=== PATIENT | female | born 1945 | race Caucasian/White ===

== ENCOUNTER 2016-08-01 15:25 | Emergency (ER) | payer MEDICARE, OTHER ==
[~2016-08-01] VITALS: Ht 154.9 cm; Wt 64.8 kg
[~2016-08-01 15:25] MED LIST: ACCUVITE; AMLO5 PO; ASPI81 PO; CENTTAB9 PO; CETI10 PO; ESTR1.25 PO; FERR140T PO; GUAI600 PO; IPRAAER IN; LACT PO; LEVA500T PO; LISI10 PO; LOPE2 PO; LORTA5 PO; METO25 PO; MIRA50TA PO; MOME17I; PANT20 PO; PRED20 PO; SYMB160A INH; VITA100020 SL; WARF4 PO; [UNRECOGNIZED DRUG - CODE] PO; [UNRECOGNIZED DRUG - CODE] PO; [UNRECOGNIZED DRUG - REMARK] XX
[2016-08-01 15:29] VITALS: BP 135/76; PULSE 71; RESP 16; TEMP 98.5; O2SAT 96
[2016-08-01] MEDS ORDERED: GLUC1TAB24 PO (16:04)
[2016-08-01] MEDS ORDERED: ZOCO20TA PO (16:04)
[2016-08-01] MEDS ORDERED: LECI1200 PO (16:04)
[2016-08-01] MEDS ORDERED: ZYRT10CA PO (16:04)
[2016-08-01] MEDS ORDERED: HYDR-3516 PO (16:04)
[2016-08-01] MEDS ORDERED: METO25TA3 PO (16:04)
[2016-08-01] MEDS ORDERED: FLUT1SPR22 INFIL (16:04)
[2016-08-01] MEDS ORDERED: TRIMSOL3 EACH EYE (16:04)
[2016-08-01] MEDS ORDERED: PROTPAK PO (16:04)
[2016-08-01] MEDS ORDERED: ESTR.3 PO (16:04)
[2016-08-01] MEDS ORDERED: MUCI600T PO (16:04)
[2016-08-01] MEDS ORDERED: OCUVTAB PO (16:04)
[2016-08-01] MEDS ORDERED: VITA100064 PO (16:04)
[2016-08-01] MEDS ORDERED: LISI-515 PO (16:04)
[2016-08-01] MEDS ORDERED: MULT-6 PO (16:04)
[2016-08-01] MEDS ORDERED: PROPARACAINE HCL 0.5% OPHT SOLN 15 ML BTL LEFT EYE ONE (16:15)
[2016-08-01] MEDS ORDERED: TOBR0.3S LEFT EYE (16:18)
--- NOTE | 2016-08-01 16:26 | PD ---
HPI Chief Complaint: Eye Problems/Injury Time Seen by Provider: 16:19 Travel History International Travel<30 days: No Contact w/Intl Traveler<30days: No Traveled to known affect area: No History of Present Illness HPI 71-year-old female that presents to the ED for evaluation of left eye irritation. Per patient yesterday she went to an urgent care for evaluation of itchiness to her left eye. Per patient she was thinking that she was probably having an allergic reaction and she does have allergies which is chronic. Per patient prior was itchy but not painful. She had tearing and watering. Per patient she went to the urgent care and then diagnosed with conjunctivitis. Per patient the laryngeal any testing on her eyes but give her a prescription for Polytrim. Patient tells me that she's been using the drops but the drops seem to be making the pain and the symptoms worse. Per patient and her eye hurts which was not present before. She states that she wants to the H her eye. She denies any chest pain or shortness of breath. No fevers chills or sweats. No runny nose or congestion. Per patient pain is 3 out of 10 and gets worse when she opens her eye. Allergy to sulfa. Denies any blurry vision or double vision. No foreign body sensation. PFSH Past Medical History Hx Anticoagulant Therapy: No Anemia: Yes Arthritis: Yes Autoimmune Disease: No Anxiety: No Depression: No Cancer: No Cardiovascular Problems: Yes (HTN, CHOL, ) Chest Pain: Yes (PALPITATIONS ) Diabetes: Yes (DIET CONTROLLED) Patient Takes Glucophage: No Diminished Hearing: No Glaucoma: No Hepatitis: No Hiatal Hernia: Yes Hypertension: Yes Immune Disorder: No Musculoskeletal: Yes Neurologic: No Psychiatric: No Reproductive: No Respiratory: Yes (pe) Immunizations Current: Yes Thyroid Disease: No Tetanus Vaccination: < 5 Years Influenza Vaccination: Yes ?: Not Menopausal: Yes Past Surgical History Ear Surgery: No Eye Surgery: Yes (BILAT CATARACTS ) Gynecologic Surgery: Yes (HYSTERECTOMY ) Hysterectomy: Yes Joint Replacement: Yes (BILAT KNEE ) Oral Surgery: No Other Surgery: Yes Social History Alcohol Use: Yes (OCCAS. WINE) Tobacco Use: No Substance Use: No Allergies-Medications (Allergen,Severity, Reaction): Coded Allergies: Sulfa (Verified Allergy, Mild, 08/01/16) Reported Meds & Prescriptions Reported Meds & Active Scripts Active Tobrex Opth Drops (Tobramycin Opth Drops) 0.3 % Soln 1 Drop LEFT EYE Q6H Reported Polymyxin B-Trimethoprim Opth (Trimethoprim-Polymyxin B Opth) 10,000-0.1 Unit/Ml -% Soln 1 Drop EACH EYE Q6HR Centrum (Multiple Vitamins W/ Minerals) 1 Tab 1 Tab PO DAILY Ocuvite (Multiple Vitamins W/ Minerals) 1 Tab 1 Tab PO DAILY Lecithin 1,200 Mg Cap 1 Tab PO DAILY Zyrtec Allergy (Cetirizine HCl) 10 Mg Cap 10 Mg PO DAILY Zocor (Simvastatin) 20 Mg Tab 20 Mg PO HS Allergy Nasal [place] 24 Ho (Fluticasone Propionate (Nasal)) 50 Mcg/Act Spr 1 [place] INFIL DAILY Hydrocodone-Acetaminophen 5-325 mg Tab 1 Tab PO Q4H PRN Metoprolol Tartrate 25 Mg Tab 25 Mg PO BID Premarin (Estrogens Conjugated) 0.3 Mg Tab 0.3 Mg PO DAILY Vitamin D (Cholecalciferol) 1,000 Unit Tab 1,000 Units PO DAILY Lisinopril 20 Mg Tab 20 Mg PO DAILY Move Free Joint Health Ad (Brcxidmaneh-Ushnnrpgnac-Qytnqj) 1 Tab Tab 1 Tab PO DAILY Mucinex ER 12 HR (Guaifenesin) 600 Mg Sha 600 Mg PO BID Protonix Liq (Pantoprazole Sodium) 40 Mg Pkt 40 Mg PO DAILY Review of Systems General / Constitutional: No: Fever, Chills, Weight Gain, Weight Loss, Other Eyes: Positive: Photophobia, Drainage, Redness, Pain, Tearing, No: Diploplia, Blurred Vision, Foreign Body Sensation, Blind Spots, Visual changes, Blindness, Other HENT: No: Headaches, Vertigo, Lightheadedness, Sore Throat, Rhinitis, Rhinorrhea, Congestion, Nosebleed, Neck Stiffness, Neck Pain, Masses, Gingival Bleeding, Dental Difficulties, Ear Discharge, Earache, Other Cardiovascular: No: Chest Pain or Discomfort, Palpitations, Irregular Rhythm, Tachycardia, Diaphoresis, Syncope, Dyspnea on exertion, Varicosities, Edema, Cyanosis, Varicosities, Phlebitis, Claudication, Other Respiratory: No: Cough, Shortness of Breath, Wheezing, Sneezing, Orthopnea, Hemoptysis, Stridor, Night Sweats, Pleuritic Pain, Other Gastrointestinal: No: Nausea, Vomiting, Diarrhea, Abdominal Pain, Hematemesis, Hematochezia, Constipation, Changes in Bowel Habits, Indigestion, Dysphagia, Loss of Appetite, Other Genitourinary: No: Urgency, Frequency, Dysuria, Nocturia, Hematuria, Decreased Urinary Output, Oliguria, Hesitancy, Dribbling, Incontinence, Pelvic Pain, Flank Pain, Dyspareunia, Discharge, Dysmenorrhea, Menorrhagia, Metorrhagia, Vaginal Bleeding, Other Musculoskeletal: No: Myalgias, Arthralgias, Limited ROM, Weakness, Cramping, Edema, Pain, Atrophy, Other Skin: No Rash, No Itching, No Dryness, No Lumps, No Hives, No Change in Pigmentation, No Change in nails, No Alopecia, No Lesions, No Breast Lumps, No Breast Tenderness, No Breast Swelling, No Other Neurologic: No: Weakness, Dizziness, Syncope, Focal Abnormalities, Coordination Problem, Tremor, Ataxia, Headache, Change in Mentation, Slurred Speech, Paresthesia, Incontinence, Seizures, Sensory Disturbance, Other Psychiatric: No: Anxiety, Depression, Suicidal Ideations, Disorder of Thought, Mood Disorder, Substance Abuse, Homicidal Ideation, Other Endocrine: No: Heat Intolerance, Cold Intolerance, Polyuria, Polydipsia, Other Hematologic/Lymphatic: No: Easy Bruising, Lymph Node Enlargement, Other Physical Exam Narrative GENERAL: SKIN: Warm and dry. HEAD: Atraumatic. Normocephalic. EYES: Pupils equal and round 4 mm reactive to light and accommodation. No scleral icterus. No injection or drainage. EOM intact bilaterally. Peripheral vision intact bilaterally. Fluorescein test revealed no sign of scratch or obvious deformity. Ophthalmic exam reveals no sign of papilledema or vessel disease. Patient does have what appears to be slight erythema to the eyelids. ENT: No nasal bleeding or discharge. Mucous membranes pink and moist. Tongue is midline. No uvula deviation. NECK: Trachea midline. No JVD. CARDIOVASCULAR: Regular rate and rhythm. RESPIRATORY: No accessory muscle use. Clear to auscultation. Breath sounds equal bilaterally. GASTROINTESTINAL: Abdomen soft, non-tender, nondistended. Hepatic and splenic margins not palpable. MUSCULOSKELETAL: Extremities without clubbing, cyanosis, or edema. No obvious deformities. NEUROLOGICAL: Awake and alert. No obvious cranial nerve deficits. Motor grossly within normal limits. Five out of 5 muscle strength in the arms and legs. Normal speech. PSYCHIATRIC: Appropriate mood and affect; insight and judgment normal. Data Data Last Documented VS Vital Signs Date Time Temp Pulse Resp B/P Pulse Ox O2 Delivery O2 Flow Rate FiO2 08/01/16 15:29 98.5 71 16 135/76 96 Orders Proparacaine 0.5% Opth Soln (Alcaine 0.5 (08/01/16 16:15) [facility] Medical Decision Making Medical Screen Exam Complete: Yes Emergency Medical Condition: Yes Medical Record Reviewed: Yes Differential Diagnosis Conjunctivitis versus allergic conjunctivitis versus allergic reaction to medication Narrative Course 71-year-old female that presents to the ED for evaluation of left eye irritation. Patient was properly examined and was found to have signs and symptoms consistent with appears to be allergic conjunctivitis likely worse because of use of sulfa medication on the left side. I do not see any sign of abrasion or deformity to the eye itself. Per patient's symptoms were worse after playing drugs. Patient is allergic to sulfa and she was given a prescription for PolytriSoothEase be which has sulfa in it. This is likely a reaction to the medication. Patient had complete relief of symptoms with proparacaine. From history and physical this appears to be a topical allergic reaction. I recommend Benadryl [id number]. Case was discussed with Dr. Dill the gastroenterology technician automotive fuel injection servicer who recommends Tobrex prescription in addition to the medications. Follow-up with PCP. Follow with eye doctor. See ED worsening symptoms. Diagnosis Primary Impression: Conjunctivitis Qualified Code: B30.9 - Acute viral conjunctivitis of left eye Additional Impression: Medication reaction Qualified Code: T88.7XXA - Medication reaction, initial encounter Referrals: Shelley Dill MD Patient Instructions: General Instructions Additional Instructions: Discontinue drops each ear were using. No longer use this. Take medication given to you today. Keep eye covered. Take Benadryl 25 mg every 6 hours as needed to help with the age and to the swelling. Apply ice to the area. Recheck with gastroenterology technician next week. See ED for any worsening symptoms. Pain and swelling should resolve in the next 24-48 hours. Med/Other Pt SpecificInfo: Prescription(s) given Scripts Tobramycin Opth Drops (Tobrex Opth Drops)0.3 % Soln1 Drop LEFT EYE Q6H #1 BOTTLE Ref 0 Prov:Jia Cunningham DO 08/01/16 Disposition: 01 DISCHARGE HOME Condition: Stable Uday Lozano Aug 01, 2016 16:26
== END 2016-08-01 16:56 | disposition home or self-care (01) ==
LOC: PHEFT 15:25
DX: I10 Essential (primary) hypertension (principal); E11.9 Type 2 diabetes mellitus without complications; H10.12 Acute atopic conjunctivitis, left eye
CPT/HCPCS: 99283

== ENCOUNTER 2017-12-31 09:06 | Inpatient (IN) ==
[2017-12-31] MEDS ORDERED: MethylPREDNISolone Sod Succinate Inj 125 MG/2 ML Vial IV.PUSH ONE (09:39)
--- NOTE | 2017-12-31 09:51 | ED ---
HPI General Chief complaint: Respiratory Symptoms Stated complaint: sob Time Seen by Provider: 12/31/17 09:26 Source: patient Mode of arrival: ambulatory Limitations: no limitations History of Present Illness HPI narrative: 72-year-old female presents to the emergency department with complaint of shortness of breath, cough, wheezing 2 days. I reviewed her medical record and it shows history of COPD, although the patient denies. She does use an albuterol inhaler, and last used it yesterday. She called her waste oil pumper yesterday, Dr. Mcintyre, and he called her and a prescription for a Z-Luke which she took 2 pills yesterday and has not felt better. She also states that she was here 2 years ago and spots were found on her lungs which she follows with Dr. Reynoso, oncologist, and they have minimally changed, per the patient. 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 She reports having multiple blood clots in her lungs also 2 years ago. Denies any fever or vomiting. Denies hemoptysis. Reports green/linton sputum production. Denies chest pain. Reports chest discomfort only with coughing. Denies leg edema. Reports hormone replacement therapy and takes Premarin. Denies any recent travel, surgeries, hospitalizations. Denies tobacco use. Treatments tried have been a azithromycin and albuterol inhaler. No known aggravating or relieving factors. Symptoms are moderate to severe in severity. Her main care provider is Dr. Gordon. Allergies as listed on the chart. History of hypertension, PE, DVT, per the patient. Has no other medical complaints. No other modifying factors or associated signs and symptoms. Related Data Home Medications Medication Instructions Recorded Confirmed cetirizine [Zyrtec] 10 mg PO DAILY 12/31/17 12/31/17 cholecalciferol (vitamin D3) 1,000 unit PO DAILY 12/31/17 12/31/17 [Vitamin D3] conjugated estrogens [Premarin] 0.3 mg PO DAILY 12/31/17 12/31/17 fluticasone 2 spray INTRANASAL DAILY 12/31/17 12/31/17 hydrocodone-acetaminophen 1 tab PO Q6H PRN 12/31/17 12/31/17 lisinopril 20 mg PO DAILY 12/31/17 12/31/17 metoprolol tartrate 50 mg PO BID 12/31/17 12/31/17 [id number]-gps-OC-lycopen-lutein 1 tab PO DAILY 12/31/17 12/31/17 [Centrum Silver] pantoprazole [Protonix] 40 mg PO DAILY 12/31/17 12/31/17 simvastatin 20 mg PO QPM 12/31/17 12/31/17 vit C-vit S-gtfkzw-fhq-om-3 1 cap PO DAILY 12/31/17 12/31/17 [Ocuvite] Allergies Allergy/AdvReac Type Severity Reaction Status Date / Time Sulfa (Sulfonamide Allergy Mild Rash Verified 12/31/17 09:43 Antibiotics) atenolol Allergy Rash Verified 12/31/17 09:43 cefuroxime Allergy Rash Verified 12/31/17 09:43 clarithromycin [From Biaxin] Allergy Rash Verified 12/31/17 09:43 enalaprilat [From Vasotec] Allergy Rash Verified 12/31/17 09:43 levofloxacin [From Levaquin] Allergy Rash Verified 12/31/17 09:43 prednisone Allergy Nausea/Vomi Verified 12/31/17 17:10 ting Review of Systems ROS Unobtainable All other systems reviewed negative except as stated in HPI PMFSH Medical History Medical History History of pneumonia (Acute) Hx pulmonary embolism (Acute) Hx of hysterectomy (Acute) High cholesterol (Acute) Hypertension (Chronic) H/O: hysterectomy (Acute) Surgical History Surgical History Hx of cervical spine surgery (Acute) Social History Social History Substance History: No History of Abuse Second Hand Smoke Exposure: No Smoking Status: Never smoker How Often Do You Have a Drink Containing Alcohol: Monthly or less Recent Travel in [facility] within the Last 8 Weeks: No Recent Out of Country Travel within the Last 8 Weeks: No Immunization History Tetanus Immunization: Unsure Hx Influenza Vaccine This Season: No Exam Narrative Exam Narrative: GENERAL: Well-nourished, well-developed female patient , in no acute distress; afebrile, nontoxic-appearing SKIN: Warm and dry. HEAD: Atraumatic. Normocephalic. EYES: Pupils equal and round. No scleral icterus. No injection or drainage. ENT: Mucosa pink and moist. No erythema or exudates. No uvular edema. No uvular , palatal, or tonsillar deviation. Airway patent. Nares without nasal blood, purulent drainage or septal hematoma. EARS: Bilateral pinnae and external canals appear within normal limits. Bilateral tympanic membranes without erythema, dullness or perforation. NECK: Trachea midline. No lymphadenopathy. CARDIOVASCULAR: Tavhycardic rate and rhythm in low 100's. No murmur appreciated. RESPIRATORY: No accessory muscle use. Lungs with decreased lung sounds throughout and coarse lung sounds in bilateral bases to auscultation. Breath sounds equal bilaterally. No retractions or tachypnea. No Audible wheezing noted. Shortness of breath noticed with talking. GASTROINTESTINAL: Rounded. MUSCULOSKELETAL: No obvious deformities. No clubbing. No cyanosis. No edema. NEUROLOGICAL: Awake and alert. Oriented 3. No obvious cranial nerve deficits. Motor grossly within normal limits. Normal speech. Moves all extremities. 5/5 strength to all extremities. PSYCHIATRIC: Appropriate mood and affect; insight and judgment normal. Course Initial Documented Vital Signs Temperature 99 F 12/31/17 09:08 Pulse Rate 104 H 12/31/17 09:08 Respiratory Rate 18 12/31/17 09:08 Blood Pressure 179/69 H 12/31/17 09:08 Pulse Oximetry 96 12/31/17 09:08 Last Documented Vital Signs Temperature 98.3 F 01/01/18 07:11 Pulse Rate 124 H 01/01/18 07:11 Respiratory Rate 18 01/01/18 07:11 Blood Pressure 153/72 H 01/01/18 07:11 Pulse Oximetry 92 L 01/01/18 07:11 Medical Decision Making SHANI Attestation SHANI supervised visit: Yes Attestation: I was present with the nurse practitioner during the management of this patient. I discussed the case with the nurse practitioner and agree with the findings and plan as documented in their note except as noted below. 72yF presenting with shortness of breath x 2 days. As per records, patient has a history of COPD and DVT/ PE; patient was started on azithromycin by her PMD with no improvement in symptoms. Admits to cough productive of green/ [place] sputum. Denies fevers/ chills, chest pain, palpitations. Family history non- contributory. Well-appearing, no acute distress RRR Coarse breath sounds at bases bilaterally, O2 sats high 80s on room air, mid 90s on 2L NC Abdomen soft and non-tender No lower extremity edema GCS 15, A&O x 3 No rashes or lesions Appropriate affect A/P: 72yF presenting with dyspnea and hypoxia EKG and monitor Labs CXR CT angio Addendum: This patient cannot go home as she has continued room-air hypoxia and pneumonia. She will need monitoring, IV antibiotics, supplemental O2, and re- evaluation at frequent intervals. AISLINN Rush discussed these results and plan with the patient, who understands and agrees. MDM Narrative Medical decision making narrative: 72-year-old female, with history of COPD after reviewing medical records, presents with shortness breath, cough, wheezing. Oxygen saturation is 88% on air. Patient placed on 2 L nasal cannula. Patient placed on cardiopulmonary monitor. Patient reports history of DVT/PE and is not on any blood thinners. Discussed patient with Dr. Swartz, and plan of care discussed. CBC, CMP, IV, chest x-ray, DuoNeb 3, Solu-Medrol, CT pulmonary angiogram ordered. 1007: I reviewed the patient's medical record and she had a CT pulmonary angiogram on July 01, 2014 which concluded small pulmonary emboli in the right upper lobe and left lower lobe of the pulmonary arterial branches; and 7 mm left lower lobe pulmonary nodule. 1040: Chest x-ray concluded: Minimal vague infiltrate left upper lobe not present previously. 1111: CBC, CMP unremarkable. 1205: CT pulmonary angiogram concluded: There is no evidence of PE for technique. 2. Left lower lobe nodule present on the studies going back to 2014 not significantly changed.3. Parenchymal infiltrates partially consolidated left upper lobe and left lower lobe suspicious for pneumonia.4. There are lymph nodes within the mediastinum appear pathological not present on the prior examinations and larger as well. Possibility of metastatic disease is difficult to exclude and clinical correlation is suggested. CT findings discussed with the patient and patient provided a copy of the CT report. I did trial the patient on room air after DuoNeb's and oxygen saturation dropped to 86 %. Rocephin and a azithromycin ordered. patient will be admitted for further treatment and evaluation. Call placed to YRIS. 1230: Patient states that she cannot take Rocephin as it causes her shortness of breath and a rash. Rocephin discontinued. 1250: I spoke with YRIS Domingo; report given for patient admission. Lab Data Lab results reviewed: Yes I reviewed the patient's lab results. Result diagrams: 01/01/18 08:00 12/31/17 09:56 Lab Results 12/31/17 12/31/17 12/31/17 Range/Units 09:56 09:56 09:56 WBC 7.8 (4.0-11.0) th/mm3 RBC 4.76 (4.00-5.30) mil/mm3 Hgb 14.0 (11.6-15.3) gm/dL Hct 41.6 (35.0-46.0) % MCV 87.3 (80.0-100.0) fL MCH 29.3 (27.0-34.0) pg MCHC 33.6 (32.0-36.0) % RDW 14.0 (11.6-17.2) % Plt Count 282 (150-450) th/mm3 MPV 8.0 (7.0-11.0) fL Neut % (Auto) 68.8 (16.0-70.0) % Lymph % (Auto) 13.6 (9.0-44.0) % [place] % (Auto) 15.1 H (0.0-8.0) % Eos % (Auto) 1.7 (0.0-4.0) % Baso % (Auto) 0.8 (0.0-2.0) % Neut # (Auto) 5.4 (1.8-7.7) th/mm3 Lymph # (Auto) 1.1 (1.0-4.8) th/mm3 [place] # (Auto) 1.2 H (0.0-0.9) th/mm3 Eos # (Auto) 0.1 (0.0-0.4) th/mm3 Baso # (Auto) 0.1 (0.0-0.2) th/mm3 WBC Differential . Differential Comment Auto diff final PT (9.8-11.6) sec INR Ratio Sodium 141 (136-145) meq/L Potassium 3.8 (3.5-5.1) meq/L Chloride 105 (98-107) meq/L Carbon Dioxide 27.0 (21.0-32.0) meq/L Anion Gap 9 (5-15) meq/L BUN 8 (7-18) mg/dL Creatinine 0.70 (0.50-1.00) mg/dL Estimated GFR 82 L (>89) mL/min Random Glucose 87 (74-106) mg/dL Calcium 8.5 (8.5-10.1) mg/dL Total Bilirubin 0.3 (0.2-1.0) mg/dL AST 18 (15-37) U/L ALT 24 (10-53) U/L Alkaline Phosphatase 77 (45-117) U/L Troponin I Less than 0.02 L (0.02-0.05) ng/mL Total Protein 6.9 (6.4-8.2) g/dL Albumin 3.4 (3.4-5.0) g/dL 12/31/17 01/01/18 Range/Units 10:12 08:00 WBC 11.5 H (4.0-11.0) th/mm3 RBC 4.85 (4.00-5.30) mil/mm3 Hgb 14.2 (11.6-15.3) gm/dL Hct 43.0 (35.0-46.0) % MCV 88.6 (80.0-100.0) fL MCH 29.2 (27.0-34.0) pg MCHC 32.9 (32.0-36.0) % RDW 14.0 (11.6-17.2) % Plt Count 308 (150-450) th/mm3 MPV 8.4 (7.0-11.0) fL Neut % (Auto) 84.8 H (16.0-70.0) % Lymph % (Auto) 10.7 (9.0-44.0) % [place] % (Auto) 4.2 (0.0-8.0) % Eos % (Auto) 0.0 (0.0-4.0) % Baso % (Auto) 0.3 (0.0-2.0) % Neut # (Auto) 9.8 H (1.8-7.7) th/mm3 Lymph # (Auto) 1.2 (1.0-4.8) th/mm3 [place] # (Auto) 0.5 (0.0-0.9) th/mm3 Eos # (Auto) 0.0 (0.0-0.4) th/mm3 Baso # (Auto) 0.0 (0.0-0.2) th/mm3 WBC Differential . Differential Comment Auto diff final PT 10.5 (9.8-11.6) sec INR 1.0 Ratio Sodium (136-145) meq/L Potassium (3.5-5.1) meq/L Chloride (98-107) meq/L Carbon Dioxide (21.0-32.0) meq/L Anion Gap (5-15) meq/L BUN (7-18) mg/dL Creatinine (0.50-1.00) mg/dL Estimated GFR (>89) mL/min Random Glucose (74-106) mg/dL Calcium (8.5-10.1) mg/dL Total Bilirubin (0.2-1.0) mg/dL AST (15-37) U/L ALT (10-53) U/L Alkaline Phosphatase (45-117) U/L Troponin I (0.02-0.05) ng/mL Total Protein (6.4-8.2) g/dL Albumin (3.4-5.0) g/dL Imaging Data Attestation: I personally reviewed and interpreted this imaging study as follows : My impression: Airway midline. Haziness in CHRISSIE. No pneumothorax. No pleural effusion. Cardiac and mediastinal silhouettes within normal limits. Hardware present in C spine. Radiologist's impression: Chest X-Ray 12/31/17 09:42 CONCLUSION: Minimal vague infiltrate left upper lobe not present previously. Chest CTA 12/31/17 09:45 CONCLUSION: 1. There is no evidence of PE for technique. 2. Left lower lobe nodule present on the studies going back to 2014 not significantly changed. 3. Parenchymal infiltrates partially consolidated left upper lobe and left lower lobe suspicious for pneumonia. 4. There are lymph nodes within the mediastinum appear pathological not present on the prior examinations and larger as well. Possibility of metastatic disease is difficult to exclude and clinical correlation is suggested. ECG Data Interpretation: Rate: 93 BPM Rhythm: Sinus [place]: Normal Intervals: Normal intervals, no blocks, QTc 408 ms Q waves: III, aVF T waves: Flattened in III ST segments: No elevations or depressions Impression: Non-specific EKG, no changes as compared to EKG from 07/01/2014. Discharge Plan Discharge Disposition Patient Disposition: 30 Still Patient Discharge Details Diagnosis: Pneumonia, Hypoxia Physicians Team ED Provider: Osiris Swartz ED Midlevel Provider: Xiomara Rush Primary Care Provider: Geovanna Coulter Attending Provider: Andres Amaro Other Providers: Marv Tony ; Yong Castorena V Status ED Status: Left Department Discharge Information Discharge Date/Time: 12/31/17 14:30
[2017-12-31 10:22] LABS: Baso # (Auto) 0.1 th/mm3 (0.0-0.2); Baso % (Auto) 0.8 % (0.0-2.0); Eos # (Auto) 0.1 th/mm3 (0.0-0.4); Eos % (Auto) 1.7 % (0.0-4.0); Hematocrit 41.6 % (35.0-46.0); Lymph # (Auto) 1.1 th/mm3 (1.0-4.8); Lymph % (Auto) 13.6 % (9.0-44.0); Mean Corpuscular HGB Conc 33.6 % (32.0-36.0); Mean Corpuscular Hemoglobin 29.3 pg (27.0-34.0); Mean Corpuscular Volume 87.3 fL (80.0-100.0); Mono # (Auto) 1.2 th/mm3 (0.0-0.9); Mono % (Auto) 15.1 % (0.0-8.0); Neut # (Auto) 5.4 th/mm3 (1.8-7.7); Neut % (Auto) 68.8 % (16.0-70.0); Platelet Count 282 th/mm3 (150-450); Red Blood Count 4.76 mil/mm3 (4.00-5.30); White Blood Count 7.8 th/mm3 (4.0-11.0)
--- NOTE | 2017-12-31 10:36 | XR ---
EXAM DATE: 12/31/2017 10:30 AM EDT AGE/SEX: 72 years / Female INDICATIONS: Shortness of breath. CLINICAL DATA: This is the patient's initial encounter. Patient reports that signs and symptoms have been present for 1 day and indicates a pain score of 0/10. MEDICAL/SURGICAL HISTORY: Hypertension. None. COMPARISON: [facility], XR CHEST PA AND LAT, 12/04/2015. . FINDINGS: There is mild vague infiltrate left upper lobe. Focal consolidation is not seen. Heart and mediastinu m are unremarkable for technique. CONCLUSION: Minimal vague infiltrate left upper lobe not present previously. Electronically signed by: Gloria Silveira MD 12/31/2017 10:34 AM EDT
[2017-12-31 10:41] LABS: Prothrombin Time 10.5 sec (9.8-11.6)
[2017-12-31 10:51] LABS: Albumin 3.4 g/dL (3.4-5.0); Anion Gap 9 meq/L (5-15); Aspartate Aminotransferase 18 U/L (15-37); Blood Urea Nitrogen 8 mg/dL (7-18); Calcium 8.5 mg/dL (8.5-10.1); Chloride 105 meq/L (98-107); Glomerular Filtration Rate 82 mL/min (>89); Glucose,Random 87 mg/dL (74-106); Potassium 3.8 meq/L (3.5-5.1); Sodium 141 meq/L (136-145)
[2017-12-31 10:56] LABS: Alanine Aminotransferase 24 U/L (10-53); Alkaline Phosphatase 77 U/L (45-117); Total Protein 6.9 g/dL (6.4-8.2)
--- NOTE | 2017-12-31 11:53 | CT ---
EXAM DATE: 12/31/2017 11:42 AM EDT AGE/SEX: 72 years / Female INDICATIONS: Shortness of breath for three days. CLINICAL DATA: This is the patient's initial encounter. Patient reports that signs and symptoms have been present for 1 day and indicates a pain score of 0/10. MEDICAL/SURGICAL HISTORY: Hypertension. Hysterectomy. RADIATION DOSE: 9.29 CTDI (mGy) COMPARISON: [facility], CT CHEST W/O CONTRAST, 08/23/2017. [facility], CT CHEST W/O CONTRAST, 09/08/2016. [facility], CT CHEST W/O CONTRAST, 02/26/2015. . TECHNIQUE: Volumetric scanning was performed using a multi-row detector CT scanner during bolus infu michelet of 75 ml Omnipaque 350 (iohexol) nonionic water-soluble contrast as a single exam dose. The awais a was post processed with a variety of visualization algorithms including full volume maximum intensi ty projection and sliding thin slab reformation. Using automated exposure control and adjustment of the mA and/or kV according to patient size, radiation dose was kept as low as reasonably achievable t o obtain optimal diagnostic quality images. DICOM format image data is available electronically for review and comparison. FINDINGS: Focal airspace process is present left upper lobe posteriorly has the appearance of pneumonia. There is also an approximate 6 to 7 mm nodule left lower lobe anterolateral with focal infiltrate in left l ower lobe posteriorly hazy in appearance. The left lower lobe nodule was present on the prior study f rom 08/2017 and 08/2016, 02/2015 and not significantly changed. It measures 5 mm on the study from There is no pleural effusion. There are lymph nodes within the mediastinum the largest ones measure 1.3 cm in size in pretracheal location (it measured 1.1 cm on the study from 08/2016 and 1.[address] [facility] from 08/2017) with a separate one measures 1.9 cm in subcarinal location which measured 1.1 cm on the study from 08/2017 at 08/2016. There are also small lymph nodes in the AP window and bilateral hilu m not present previously. There is no evidence of PE for technique. CONCLUSION: 1. There is no evidence of PE for technique. 2. Left lower lobe nodule present on the studies going back to 2014 not significantly changed. 3. Parenchymal infiltrates partially consolidated left upper lobe and left lower lobe suspicious for pneumonia. 4. There are lymph nodes within the mediastinum appear pathological not present on the prior examina tions and larger as well. Possibility of metastatic disease is difficult to exclude and clinical heidi elation is suggested. Electronically signed by: Gloria Silveira MD 12/31/2017 11:52 AM EDT
[2017-12-31] MEDS ORDERED: Azithromycin Inj 500 MG in Sodium Chlor 0.9% Inj 250 ML IV.SIG ONE (12:00)
--- NOTE | 2017-12-31 13:15 | P.HPIM ---
History of Present Illness Service: [facility] Primary Care Physician: Geovanna Coulter DO Chief Complaint: shortness of breath, cough History of Present Illness: Mrs. Stewart is a 72 yo F with PMH pulmonary disease (patient of Dr. Castorena and Dr. Reynoso; prior PEs, pneumonia, lung nodule), HTN who presents with cough and shortness of breath. Patient states that she began feeling sick with cough and shortness of breath 2 days prior; she quickly worsened so called Dr. Herminio hollingsworth who sent Azithromycin to pharmacy. Patient took dose of Azithromycin without improvement so decided to seek ED admission since she continued to feel worse today. Patient describes her cough as productive of dark/yellow phlegm. Patient reports wheezing also which she states has improved since being seen in ED. No chest pain or leg swelling. Patient denies headache. No numbness/tingling, or weakness in extremities with exception of chronic carpal tunnel symptoms for which she wears wrist splint. Interval: Patient given Solumedrol 125mg and Azithromycin in ED. Patient also given Duonebs x1 treatment.Patient reports feeling better after arrival in ED - Diagnosis (1) Pneumonia (2) Hypoxia (3) Hypertension Review of Systems Constitutional: Denies chills, Denies fever(s) Eyes: Denies blurry vision, Denies discharge Ears, Nose, Mouth, and Throat: Denies mouth lesions, Denies mouth pain Cardiovascular: Denies chest pain, Denies irregular heart rhythm Respiratory: Reports chest congestion, Reports cough, Reports shortness of breath, Reports wheezing Gastrointestinal: Denies abdominal pain, Denies change in stools Musculoskeletal: Denies back pain, Denies joint pain Skin/Breast: Denies itching, Denies rash Neurologic: Denies abnormal movements, Denies headache(s) Hematologic/Lymphatic: Denies easy bleeding, Denies easy bruising PMFSH - History History Provided By: Patient - Medical History Medical History: Medical History (Last Updated 12/31/17 @ 14:25 by Mynor Eddy MD) History of pneumonia (Acute) Hx pulmonary embolism (Acute) Hx of hysterectomy (Acute) High cholesterol (Acute) Hypertension (Acute) H/O: hysterectomy - Surgical History Surgical History: Surgical History (Last Updated 12/31/17 @ 14:24 by Mynor Eddy MD) Hx of cervical spine surgery (Acute) - Tobacco History Second Hand Smoke Exposure: No Tobacco Use In Past 30 Days: No Smoking Status: Never smoker - Alcohol History How Often Do You Have a Drink Containing Alcohol: Monthly or less - Substance Use History Substance History: No History of Abuse - Travel History Recent Travel in the [place] Within the Last 8 Weeks: No Recent Travel Out of the Country Within the Last 8 Weeks: No - Immunization History Tetanus Immunization: Unsure Hx Influenza Vaccine This Season: No Medications and Allergies Active Medications: Active Medications Sodium Chloride (Ns Flush) 2 ml IV.FLUSH PRN PRN PRN Reason: FLUSH AFTER USING IV ACCESS Allergies Allergy/AdvReac Type Severity Reaction Status Date / Time Sulfa (Sulfonamide Allergy Mild Rash Verified 12/31/17 09:43 Antibiotics) atenolol Allergy Rash Verified 12/31/17 09:43 cefuroxime Allergy Rash Verified 12/31/17 09:43 clarithromycin [From Biaxin] Allergy Rash Verified 12/31/17 09:43 enalaprilat [From Vasotec] Allergy Rash Verified 12/31/17 09:43 levofloxacin [From Levaquin] Allergy Rash Verified 12/31/17 09:43 prednisone Allergy Nausea/Vomi Verified 12/31/17 17:10 ting Home Medications Medication Instructions Recorded Confirmed Type cetirizine [Zyrtec] 10 mg PO DAILY 12/31/17 12/31/17 History cholecalciferol (vitamin D3) 1,000 unit PO DAILY 12/31/17 12/31/17 History [Vitamin D3] conjugated estrogens [Premarin] 0.3 mg PO DAILY 12/31/17 12/31/17 History fluticasone 2 spray INTRANASAL DAILY 12/31/17 12/31/17 History hydrocodone-acetaminophen 1 tab PO Q6H PRN 12/31/17 12/31/17 History lisinopril 20 mg PO DAILY 12/31/17 12/31/17 History metoprolol tartrate 50 mg PO BID 12/31/17 12/31/17 History xrnxtist-sbz-VQ-lycopen-lutein 1 tab PO DAILY 12/31/17 12/31/17 History [Centrum Silver] pantoprazole [Protonix] 40 mg PO DAILY 12/31/17 12/31/17 History simvastatin 20 mg PO QPM 12/31/17 12/31/17 History vit C-vit N-mlavzj-lnt-om-3 1 cap PO DAILY 12/31/17 12/31/17 History [Ocuvite] Exam Vital signs: Vital Signs 12/31/17 09:08 12/31/17 09:29 12/31/17 10:10 Temperature 99 F Pulse Rate 104 H Respiratory Rate 18 Blood Pressure 179/69 H Pulse Oximetry 96 88 L 96 12/31/17 10:49 12/31/17 11:00 12/31/17 11:09 Temperature Pulse Rate 92 H 76 95 H Respiratory Rate 18 20 18 Blood Pressure 165/84 H Pulse Oximetry 96 94 L 12/31/17 11:19 12/31/17 12:01 Temperature Pulse Rate 103 H Respiratory Rate 18 Blood Pressure Pulse Oximetry 86 L Intake & Output 12/30/17 12/31/17 12/31/17 18:59 06:59 18:59 Weight 67.132 kg Other: # Voids 1 Narrative: Gen: No acute distress Skin: No visible lesions Neck: No appreciated lymphadenopathy or thyromegaly CV: regular rate and rhythm; normal perfusion Resp: Coughing during exam which was dry. No obvious wheezing; good air movement without focal congestion to auscultation Abd: Soft, nontender, normal BS MSK: Grossly normal motor function and ROM; normal gait Neuro: Grossly normal motor function and ROM. Normal peripheral motor/sensory function Results - Labs CBC & Chem 7: 12/31/17 09:56 12/31/17 09:56 Labs: Short CBC 12/31/17 Range/Units 09:56 WBC 7.8 (4.0-11.0) th/mm3 Hgb 14.0 (11.6-15.3) gm/dL Hct 41.6 (35.0-46.0) % Plt Count 282 (150-450) th/mm3 BMP 12/31/17 09:56 Sodium 141 Potassium 3.8 Chloride 105 Carbon Dioxide 27.0 BUN 8 Creatinine 0.70 Calcium 8.5 Cardiac Enzymes 12/31/17 Range/Units 09:56 Troponin I Less than 0.02 L (0.02-0.05) ng/mL Liver Function 12/31/17 Range/Units 09:56 Total Bilirubin 0.3 (0.2-1.0) mg/dL AST 18 (15-37) U/L ALT 24 (10-53) U/L Alkaline Phosphatase 77 (45-117) U/L Albumin 3.4 (3.4-5.0) g/dL - Imaging Impressions Chest X-Ray 12/31/17 09:42 CONCLUSION: Minimal vague infiltrate left upper lobe not present previously. Chest CTA 12/31/17 09:45 CONCLUSION: 1. There is no evidence of PE for technique. 2. Left lower lobe nodule present on the studies going back to 2014 not significantly changed. 3. Parenchymal infiltrates partially consolidated left upper lobe and left lower lobe suspicious for pneumonia. 4. There are lymph nodes within the mediastinum appear pathological not present on the prior examinations and larger as well. Possibility of metastatic disease is difficult to exclude and clinical correlation is suggested. Caprini VTE Risk Assessment Caprini VTE Risk Assessment: Moderate/High Risk (score >= 2) Caprini Risk Assessment Model: Point Value = 1 Point Value = 2 Point Value = 3 Point Value = 5 Age 41-60 Minor surgery BMI > 25 kg/m2 Swollen legs Varicose veins or History of unexplained or recurrent spontaneous Oral contraceptives or hormone replacement Sepsis (< 1 month) Serious lung disease, including pneumonia (< 1 month) Abnormal pulmonary function Acute myocardial infarction Congestive heart failure (< 1 month) History of inflammatory bowel disease Medical patient at bed rest Age 61-74 Arthroscopic surgery Major open surgery (> 45 min) Laparoscopic surgery (> 45 min) Malignancy Confined to bed (> 72 hours) Immobilizing plaster cast Central venous access Age >= 75 History of VTE Family history of VTE Factor V Leiden Prothrombin [id number] Lupus anticoagulant Anticardiolipin antibodies Elevated serum homocysteine Heparin-induced thrombocytopenia Other congenital or acquired thrombophilia Stroke (< 1 month) Elective arthroplasty Hip, pelvis, or leg fracture Acute spinal cord injury (< 1 month) Prophylaxis Regimen: Total Risk Factor Score Risk Level Prophylaxis Regimen 0-1 Low Early ambulation 2 Moderate Order ONE of the following: *Sequential Compression Device (SCD) *Heparin 5000 units SQ BID 3-4 Higher Order ONE of the following medications: *Heparin 5000 units SQ TID *Enoxaparin/Lovenox 40 mg SQ daily (WT < 150 kg, CrCl > 30 mL/min) *Enoxaparin/Lovenox 30 mg SQ daily (WT < 150 kg, CrCl > 10-29 mL/min) *Enoxaparin/Lovenox 30 mg SQ BID (WT < 150 kg, CrCl > 30 mL/min) AND/OR *Sequential Compression Device (SCD) 5 or more Highest Order ONE of the following medications: *Heparin 5000 units SQ TID (Preferred with Epidurals) *Enoxaparin/Lovenox 40 mg SQ daily (WT < 150 kg, CrCl > 30 mL/min) *Enoxaparin/Lovenox 30 mg SQ daily (WT < 150 kg, CrCl > 10-29 mL/min) *Enoxaparin/Lovenox 30 mg SQ BID (WT < 150 kg, CrCl > 30 mL/min) AND *Sequential Compression Device (SCD) Assessment and Plan - Assessment (1) Pneumonia Code(s): J18.9 - Pneumonia, unspecified organism Status: Acute (2) Hypoxia Code(s): R09.02 - Hypoxemia Status: Acute (3) Hypertension Code(s): I10 - Essential (primary) hypertension Status: Chronic - Plan Mrs. Stewart is a 72 yo F with PMH of pulmonary disease (patient of Dr. Castorena ) who presents with cough and shortness of breath: Respiratory Impression: Suspect CAP. Cough and shortness of breath x2 days; hypoxic to mid 80's on room air in ED. Prior PE's per patient/EMR. s/p Azithromycin as outpatient. s/p Azithromycin, Solumedrol, and Duonebs in ED CXR on admission: Minimal vague infiltrate left upper lobe not present previously CTA on admission: No PE. LLL nodule not changed since prior imaging. Parenchymal infiltrates partially consolidated L upper lobe and L lower lobe suspicious for pneumonia. Lymph nodes in mediastinum appear pathological; not present on prior exams/larger -Monitor O2 saturations -Continue scheduled Duonebs -Will consult Pulmonology since known to Dr. Castorena -Will check sputum culture, urinary antigens (Legionella and strep pneumo) -Will treat for CAP -Will continue Azithromycin -Will add Augmentin (Age >65yrs with chronic respiratory disease. Patient has been taking previously with only diarrhea. Has cephalosporin and Levaquin allergy) -Will continue IV Solumedrol Lymphadenopathy on CTA Impression: Patient of Dr. Reynoso; had f/u imaging planned for 02/2018 -Will consult Dr. Reynoso for further evaluation per patient request HTN Impression: BP 179/69 on admission; on home Metoprolol 25mg daily, Lisinopril 20mg daily -Continue home medications DVT PPX -Will give Lovenox 40mg daily and SCD's Code Status: Full code Discharge Planning: Pending pneumonia treatment and Pulmonology/Heme Onc evaluation Addendum Discussed with nursing staff; patient refuses Lovenox and is reluctant to take Augmentin due to diarrhea; will discuss further with patient (1) Pneumonia Qualifiers: Pneumonia type: due to unspecified organism Laterality: left Lung location: upper lobe of lung Qualified Code(s): J18.1 - Lobar pneumonia, unspecified organism (3) Hypertension Qualifiers: Hypertension type: essential hypertension Qualified Code(s): I10 - Essential (primary) hypertension
[2017-12-31] MEDS ORDERED: Acetaminophen 325 MG Tablet PO PRN (13:42)
[2017-12-31] MEDS ORDERED: Amoxicillin/Clavulanate 875/125 MG Tablet PO SCH (15:00)
--- NOTE | 2017-12-31 16:27 | MB ---
cc: Mahi Escalante MD DATE: 12/31/2017 REASON FOR CONSULTATION: Bronchitis and hypoxia. HISTORY OF PRESENT ILLNESS: This is a 72-year-old white female was previously known to me with a history of chronic bronchitis, history of pulmonary nodules and a prior history of pneumonia as well as history of pulmonary emboli in the past. She was experiencing shortness of breath, cough, wheezing and chest tightness. She was bringing up a little thick mucus and yesterday started on Zithromax 500 mg a day, but last night the cough was persistent and she could not catch her breath and thus came to the emergency room and was bringing up thick, dark mucus and thus was admitted and placed on oxygen. Her O2 saturations were low. The patient has no hemoptysis. She is not running any fevers. She has some reflux. No nausea, vomiting. No leg swelling. PAST MEDICAL HISTORY/PAST SURGICAL HISTORY: The patient's past history has included history of recurrent bronchitis and asthma, history of pulmonary nodules which have been stable, and she also has a history of pulmonary embolism and prior hysterectomy. She is a known hypertensive. No history of diabetes. The patient did have multiple lung nodules which are being followed by serial CAT scans and she has been seen by the oncologist and is due to have a repeat CAT scan in February. HABITS: The patient does not smoke. No significant alcohol use. ALLERGIES: THE PATIENT HAS NO SIGNIFICANT DRUG ALLERGIES. FAMILY HISTORY: Essentially noncontributory. REVIEW OF SYSTEMS: The patient has had no weight loss. No headaches or blackouts. She has some sinus drainage. She has wheezing and orthopnea and epigastric distress and reflux. No urinary symptoms. No leg or calf muscle pains. She has no skin lesions, but has some joint pain and some neck pains. MEDICATIONS: Medication list was reviewed from chart. PHYSICAL EXAMINATION: GENERAL: This is an averagely built, elderly white female who is alert, in no acute distress. Mild pallor, no clubbing, no peripheral edema, no cyanosis or icterus. VITAL SIGNS: Blood pressure 150/70, pulse is 90, respirations 22, temperature 98.5. HEENT: Head is normocephalic. Pupils are reactive. Throat is injected. Tongue was coated. Ears: No inflammation. NECK: No bruits. No thyroid enlargement or lymphadenopathy. CHEST: Decreased excursions with no definite wheezes. There are occasional crackles at the right base. HEART: Heart sounds are regular, S1 and S2, with no murmur. No S3. ABDOMEN: Soft, nontender. No organomegaly. The bowel sounds are active. EXTREMITIES: No lesions or edema and no calf tenderness. Suzan's sign is negative. Reflexes are 1+ with no gross motor deficits. SKIN: Showing no lesions. IMPRESSION: 1. Asthmatic bronchitis. 2. Multiple lung nodules, etiology undetermined. 3. Early pneumonia, left upper lobe. 4. History of pulmonary embolism. PLAN: The patient has been started on antibiotic coverage for the pneumonia, which includes Rocephin 1 gram IV and Zithromax 500 mg IV daily. We will also continue with Solu-Medrol 60 mg IV b.i.d. and the patient will be given nebulized albuterol and Atrovent solution q.i.d. and prophylactic Lovenox 40 mg subcutaneous daily. Blood gas study to be done. Pulmonary function study done at the bedside and a repeat chest x-ray to evaluate for pneumonia. The lung nodules need further workup including a PET-CT when she is discharged from here. CBC and BMP will be repeated as well and sputum sent for Gram's stain and culture. Thank you Dr. Eddy for this consultation. Mahi Escalante MD VJD/SAM , 03:38 PM , 04:26 PM
[2017-12-31] MEDS: Metoprolol Tartrate 50 MG Tablet PO SCH ×2 (17:40→23:01)
[2017-12-31] MEDS: Enoxaparin Inj 40 MG/0.4 ML Syringe SQ SCH (17:44)
--- NOTE | 2017-12-31 19:00 | ECG ---
Date Performed: 12/31/2017 Time Performed: 10:20:16 PTAGE: 72 years EKG: Sinus rhythm INFERIOR MYOCARDIAL INFARCTION ABNORMAL ECG Compared to PREVIOUS TRACING , R progression imporved PREVIOUS TRACIN07/01/2014 18.15 DOCTOR: Yary Flaherty Interpretating Date/Time 12/31/2017 18:58:32
[2017-12-31] MEDS: Senna/Docusate Sodium 8.6/50 MG Tablet PO SCH (20:15)
[2017-12-31] MEDS ORDERED: MethylPREDNISolone Sod Succinate Inj 125 MG/2 ML Vial IV.PUSH SCH (21:00)
[2017-12-31] MEDS: MethylPREDNISolone Sod Succinate Inj 125 MG/2 ML Vial IV.PUSH SCH (23:26)
[2018-01-01 08:59] LABS: Baso % (Auto) 0.3 % (0.0-2.0); Hemoglobin 14.2 gm/dL (11.6-15.3); Lymph # (Auto) 1.2 th/mm3 (1.0-4.8); Lymph % (Auto) 10.7 % (9.0-44.0); Mean Corpuscular HGB Conc 32.9 % (32.0-36.0); Mean Corpuscular Hemoglobin 29.2 pg (27.0-34.0); Mean Corpuscular Volume 88.6 fL (80.0-100.0); Mean Platelet Volume 8.4 fL (7.0-11.0); Mono # (Auto) 0.5 th/mm3 (0.0-0.9); Mono % (Auto) 4.2 % (0.0-8.0); Neut # (Auto) 9.8 th/mm3 (1.8-7.7); Neut % (Auto) 84.8 % (16.0-70.0); Platelet Count 308 th/mm3 (150-450); Red Blood Count 4.85 mil/mm3 (4.00-5.30); White Blood Count 11.5 th/mm3 (4.0-11.0)
[2018-01-01] MEDS ORDERED: Metoprolol Tartrate 25 MG Tablet PO SCH (09:00)
[2018-01-01 09:24] LABS: Calcium 8.9 mg/dL (8.5-10.1); Carbon Dioxide 24.3 meq/L (21.0-32.0); Potassium 3.4 meq/L (3.5-5.1)
[2018-01-01] MEDS: Lisinopril 20 MG Tablet PO SCH (09:36)
[2018-01-01] MEDS: Senna/Docusate Sodium 8.6/50 MG Tablet PO SCH ×2 (09:37→20:27)
--- NOTE | 2018-01-01 11:11 | MB ---
cc: Marv Tony MD DATE: 01/01/2018 REASON FOR CONSULTATION: The patient with history of pulmonary embolism and lung nodules, who presents to the emergency room with increasing dyspnea and was found to have enlarged mediastinal lymph nodes. HISTORY OF PRESENT ILLNESS: This is a 72-year-old female who has a history of a pulmonary nodule, anemia with iron deficiency, who presented to the emergency department for increasing shortness of breath over the past 3-[address] Reynoso in the oncology clinic. She is being followed for pulmonary nodules dating back to June 2014. She has a left lateral lung nodule, which was noted in 2014. At that time, this was approximately 7 mm. She also has a history of iron deficiency and has been on oral iron supplementation. She also follows with a GI physician, Dr. Ferreira, Dr. Padilla and Dr. Brewer. She also sees Dr. Escalante for a history of COPD. The patient was most recently seen in the oncology clinic on 09/07/2017. At that time, it was recommended that a repeat CT scan be completed in 6 months. Her counts were stable. The patient is now being admitted with pneumonia and treated with antibiotics. In the emergency room, a CT angiogram of the chest was obtained to rule out any underlying pulmonary embolism. There was no evidence of PE. A left lower lobe nodule was seen, which was unchanged compared to the studies completed in 2014. There were parenchymal infiltrates and consolidation in the left upper lobe and left lower lobe, which was suspicious for pneumonia. There was a lymph node in the subcarinal region which was 1.9 cm compared to previously when it was 1.1 cm. On the study from August 2016, there was also a small lymph node in the AP window and bilateral hilum. Oncology has been consulted to make further recommendations. The patient had a PET scan in the outpatient setting in October 2017, which was not PET avid. PAST MEDICAL HISTORY: Pulmonary emboli which occurred in June of 2014. This was small pulmonary emboli in the right upper lobe and left lower lobe of the pulmonary artery branches. SOCIAL HISTORY: The patient is . She used to work as a history department chair. She is a nonsmoker. She lives alone. She states that she is quite active. She moved from [place], [place] approximately 52 years ago. She has 1 son, who lives in [place]. FAMILY HISTORY: Reviewed. Her mother is alive and her father is . She has 1 sister, who is alive. Mother had 2 melanomas removed. Father had a history of coronary artery disease. Her grandmother of gastric cancer. REVIEW OF SYSTEMS: A comprehensive review of systems was completed which is negative except as described in the HPI. FAMILY HISTORY: Reviewed and is documented in the HPI. SOCIAL HISTORY: Reviewed. She is a nonsmoker. The rest of the history is documented in the HPI. MEDICATIONS: Inpatient medications are reviewed. 1. Tylenol 650 p.o. q.4 hours p.r.n. 2. [place] 5/325 p.r.n. 3. DuoNebs p.r.n. 4. Azithromycin 250 mg IV q.24 hours. 5. Lovenox 40 mg subcutaneous q. 24 hours. 6. Premarin 0.3 mg p.o. daily. 7. Lactobacillus 1 g p.o. t.i.d. 8. Lisinopril 20 mg p.o. daily. 9. Solu-Medrol 60 mg IV every 12 hours. 10. Metoprolol 25 mg p.o. daily. 11. Zofran 4 mg q. 6 hours p.r.n. 12. Pantoprazole 40 mg p.o. daily. 13. Pravastatin 40 mg p.o. daily. 14. Senna/docusate 1 tablet p.o. b.i.d. ALLERGIES: SHE IS ALLERGIC TO SULFA DRUGS ATENOLOL AND CEPHALEXIN. ALLERGIES WERE REVIEWED IN THE EMR. PHYSICAL EXAMINATION: VITAL SIGNS: Blood pressure is 134/62, pulse is in the 100s, temperature is 98.5, O2 saturations are 93% on room air. GENERAL: Elderly female in no apparent distress, sitting up by the side of the bed, eating her dinner. HEENT: Pupils are equal, round, reactive to light. EOMI. No oral thrush. No lesions. NECK: Supple. No JVD. No bruits. No lymphadenopathy. CHEST: Clear to auscultation bilaterally. CARDIAC: S1, S2. Regular rate and rhythm. ABDOMEN: Soft, nontender and nondistended. Bowel sounds are present. EXTREMITIES: Without any edema, erythema or cyanosis. SKIN: Without any petechia, lesion or bruises. NEUROLOGIC: No focal deficits. PSYCHIATRIC: Mood and affect is appropriate. LABORATORY DATA: WBC 7.8, hemoglobin 14, platelet count is 282. Sodium is 141, potassium 3.8, chloride 105, CO2 of 27, BUN 8, creatinine is 0.7, GFR is 82, total bilirubin is 0.3, AST is 18, ALT is 24, alkaline phosphatase is 77. IMAGING STUDIES: Reviewed in the EMR. ASSESSMENT AND PLAN: This is a 72-year-old female with a history of chronic obstructive pulmonary disease, lung nodules and iron deficiency anemia, who presents to the emergency room with progressive dyspnea. 1. Community-acquired pneumonia based on review of the CT of the chest. I agree with IV antibiotics and supportive care. continue steroids and breathing treatments. There is no evidence of pulmonary embolism based on the CT angiogram. I have reviewed her CT scan and I have also discussed this case with Dr. Reynoso. I do not believe that the lymphadenopathy seen on the CT scan is malignant. This appears to be reactive lymphadenopathy in the setting of her pneumonia. She will need a followup with Dr. Reynoso 3-4 weeks after hospital discharge and additional imaging may be required to reassess the lymphadenopathy. The patient can be discharged from the hospital once she is stable from the pneumonia and dyspnea perspective. 2. Hypertension. Blood pressures were high on admission. Further management per primary team. Thank you for allowing me to participate in the care of this patient. The patient is cleared to be discharged from the hospital for medical oncology standpoint. MD WINIFRED Henderson/NI , 10:34 AM , 11:10 AM
--- NOTE | 2018-01-01 11:27 | P.PN ---
Subjective Interval history: Follow-up visit pneumonia, failed outpatient treatment. Patient seen and examined today. Reports she still not doing well. States that she feels warm, occasional cough, expectorating sputum small amount. States it has been sent for cultures. Otherwise, denies shortness of breath or dyspnea, denies pain and discomfort. Denies chest pain, palpitations, headaches, dizziness. Denies chills, n/v/d. Denies dysuria. Physical Exam Vital signs: Vital Signs 12/31/17 12:01 12/31/17 13:00 12/31/17 16:00 Temperature 98.5 F Pulse Rate 72 112 H Respiratory Rate 20 16 Blood Pressure 156/74 H 134/62 Pulse Oximetry 86 L 95 93 L 12/31/17 16:32 12/31/17 21:41 01/01/18 00:00 Temperature 98.4 F Pulse Rate 72 82 95 H Respiratory Rate 20 20 16 Blood Pressure 144/70 H Pulse Oximetry 90 L 01/01/18 00:07 01/01/18 04:00 01/01/18 06:37 Temperature 98.7 F Pulse Rate 84 83 85 Respiratory Rate 16 16 16 Blood Pressure 162/75 H Pulse Oximetry 95 01/01/18 07:11 Temperature 98.3 F Pulse Rate 124 H Respiratory Rate 18 Blood Pressure 153/72 H Pulse Oximetry 92 L Intake & Output 12/31/17 01/01/18 01/01/18 18:59 06:59 18:59 Intake Total 250 / 250 Balance 250 / 250 Weight 67.132 kg Intake: IV 250 / 250 Azithromycin Inj 500 MG In NS 250 / 250 Inj 250 ML @ 250 mls/hr IV.SIG ONCE ONE Rx#:[id number] Other: # Voids 1 1 Date of Last Bowel Movement 12/30/17 Narrative: GENERAL: This is a well-nourished, well-developed patient, in no apparent distress. SKIN: Warm and dry HEENT: Normocephalic. Pupils equal round and reactive. Nose without bleeding. Airway patent. NECK: Trachea midline. Supple. CARDIOVASCULAR: Regular rate and rhythm without murmurs, gallops, or rubs. RESPIRATORY: Diminished bases. No wheezes, rales, or rhonchi. GASTROINTESTINAL: Abdomen soft, non-tender, nondistended. Bowel Sounds normoactive x4. MUSCULOSKELETAL: Extremities without clubbing, cyanosis, or edema. NEUROLOGICAL: Awake and alert. Oriented to time, place, person. No focal neuro deficit. Moves all extremities. Normal speech. Results - Labs CBC & Chem 7: 01/01/18 08:00 01/01/18 08:00 Laboratory Results - last 24 hr 12/31/17 01/01/18 01/01/18 09:56 08:00 08:00 WBC 11.5 H RBC 4.85 Hgb 14.2 Hct 43.0 MCV 88.6 MCH 29.2 MCHC 32.9 RDW 14.0 Plt Count 308 MPV 8.4 Neut % (Auto) 84.8 H Lymph % (Auto) 10.7 Guadalupe % (Auto) 4.2 Eos % (Auto) 0.0 Baso % (Auto) 0.3 Neut # (Auto) 9.8 H Lymph # (Auto) 1.2 Guadalupe # (Auto) 0.5 Eos # (Auto) 0.0 Baso # (Auto) 0.0 WBC Differential . Differential Comment Auto diff final Sodium 141 Potassium 3.4 L Chloride 104 Carbon Dioxide 24.3 Anion Gap 13 BUN 13 Creatinine 0.78 Estimated GFR 73 L Random Glucose 137 H Calcium 8.9 Troponin I Less than 0.02 L Microbiology 12/31/17 23:00 Urine - Clean Catch Urine Streptococcus pneumoniae Antigen ( M - Final Presumptive negative for streptococcus pneumoniae antigen, suggesting no current or recent infection. Infection due to Streptococcus pneumoniae cannot be ruled out since the antigen present in the sample may be below the detection limit of the test. 12/31/17 23:00 Urine - Clean Catch Urine Legionella Antigen - Final Presumptive negative for Legionella pneumophila serogroup 1 antigen in urine, suggesting no recent or recurrent infection. Infection due to Legionella cannot be ruled out since other serogroups and species may cause disease, antigen may not be present in urine in early infection, and the level of antigen present in the urine may be below the detection limit of the test. 12/31/17 20:15 Sputum - Expectorated Sputum Gram Stain - Final - Imaging Impressions Chest CTA 12/31/17 09:45 CONCLUSION: 1. There is no evidence of PE for technique. 2. Left lower lobe nodule present on the studies going back to 2015 not significantly changed. 3. Parenchymal infiltrates partially consolidated left upper lobe and left lower lobe suspicious for pneumonia. 4. There are lymph nodes within the mediastinum appear pathological not present on the prior examinations and larger as well. Possibility of metastatic disease is difficult to exclude and clinical correlation is suggested. - Procedures none Assessment and Plan - Assessment (1) Pneumonia Code(s): J18.9 - Pneumonia, unspecified organism Status: Acute (2) Hypoxia Code(s): R09.02 - Hypoxemia Status: Acute (3) Hypertension Code(s): I10 - Essential (primary) hypertension Status: Chronic - Plan Mrs. Stewart is a 72 yo F with PMH of pulmonary disease (patient of Dr. Castorena ) who presents with cough and shortness of breath: Community Acquired PNA, failed outpatient treatment -Cough and shortness of breath x2 days; hypoxic to mid 80's on room air in ED. s/p Azithromycin as outpatient. -s/p Azithromycin, Solumedrol, and Duonebs in ED -CXR on admission: Minimal vague infiltrate left upper lobe not present previously -CTA on admission: No PE. LLL nodule not changed since prior imaging. Parenchymal infiltrates partially consolidated L upper lobe and L lower lobe suspicious for pneumonia. Lymph nodes in mediastinum appear pathological; not present on prior exams/larger -Monitor O2 saturations -Continue scheduled Duonebs and PRN -Follow cultures -Legionella and Strep antigen negative -Consult pulmonology, appreciate recommendation. -Continue azithromycin, Augmentin, Solu-Medrol 40mg IV q8 -Symbicort 160/4.5 minutes 2 puffs twice daily. O2 nasal cannula. Lymphadenopathy on CTA -Patient of Dr. Reynoso; had f/u imaging planned for 02/2018 -Hematology consulted for further evaluation recommendation. The lymphadenopathy seen on the CT is believed to be not malignant. Possible reactive lymphadenopathy in the setting of pneumonia. Follow-up with Dr. Reynoso in 3-4 weeks after hospital discharge and additional imaging may be required to reassess the lymphadenopathy. HTN, uncontrolled -BP 179/69 on admission -Continue home medications Metoprolol 25mg daily, Lisinopril 20mg daily -Increase metoprolol 25 mg twice daily DVT PPX -Lovenox, SCDs (1) Pneumonia Qualifiers: Pneumonia type: due to unspecified organism Laterality: left Lung location: upper lobe of lung Qualified Code(s): J18.1 - Lobar pneumonia, unspecified organism (3) Hypertension Qualifiers: Hypertension type: essential hypertension Qualified Code(s): I10 - Essential (primary) hypertension
[2018-01-01] MEDS: MethylPREDNISolone Sod Succinate Inj 125 MG/2 ML Vial IV.PUSH SCH (11:39)
[2018-01-01] MEDS: Azithromycin Inj 250 MG in Sodium Chlor 0.9% Inj 250 ML IV.SIG SCH (12:20)
--- NOTE | 2018-01-01 14:25 | P.PN ---
Subjective Interval history: She has a cough and some wheezing. No fever. CXR shows a left infiltrate Physical Exam Vital signs: Vital Signs 12/31/17 16:00 12/31/17 16:32 12/31/17 21:41 Temperature 98.5 F Pulse Rate 112 H 72 82 Respiratory Rate 16 20 20 Blood Pressure 134/62 Pulse Oximetry 93 L 01/01/18 00:00 01/01/18 00:07 01/01/18 04:00 Temperature 98.4 F 98.7 F Pulse Rate 95 H 84 83 Respiratory Rate 16 16 16 Blood Pressure 144/70 H 162/75 H Pulse Oximetry 90 L 95 01/01/18 06:37 01/01/18 07:11 01/01/18 12:00 Temperature 98.3 F 98.3 F Pulse Rate 85 124 H 91 H Respiratory Rate 16 18 18 Blood Pressure 153/72 H 121/57 L Pulse Oximetry 92 L 94 L Intake & Output 12/31/17 01/01/18 01/01/18 18:59 06:59 18:59 Intake Total 250 / 250 Balance 250 / 250 Weight 67.132 kg Intake: IV 250 / 250 Azithromycin Inj 500 MG In NS 250 / 250 Inj 250 ML @ 250 mls/hr IV.SIG ONCE ONE Rx#:[id number] Other: # Voids 1 1 Date of Last Bowel Movement 12/30/17 - Constitutional no acute distress - Routine HEENT Exam Head: Present: normocephalic, atraumatic Eye: Present: PERRL ENT: Present: mucous membranes moist, nares patent, TM's clear bilaterally - Routine Neck Exam Present: supple, lymphadenopathy, thyromegaly - Routine Respiratory Exam Present: decreased breath sounds, wheezes, crackles - Routine Cardiovascular Exam Present: RRR, S1, S2, tachycardia - Routine Abdominal Exam Present: soft, normoactive bowel sounds, organomegaly - Routine Extremities Exam Present: pulses intact, pallor - Routine Skin Exam Present: intact, ecchymosis - Routine Neurological Exam Present: oriented X3, CN II-XII intact, normal reflexes, moving all extremities , hearing grossly intact, normal speech - Routine Psychiatric Exam Present: normal affect Results - Labs CBC & Chem 7: 01/01/18 08:00 01/01/18 08:00 Laboratory Results - last 24 hr 01/01/18 01/01/18 08:00 08:00 WBC 11.5 H RBC 4.85 Hgb 14.2 Hct 43.0 MCV 88.6 MCH 29.2 MCHC 32.9 RDW 14.0 Plt Count 308 MPV 8.4 Neut % (Auto) 84.8 H Lymph % (Auto) 10.7 Gage % (Auto) 4.2 Eos % (Auto) 0.0 Baso % (Auto) 0.3 Neut # (Auto) 9.8 H Lymph # (Auto) 1.2 Gage # (Auto) 0.5 Eos # (Auto) 0.0 Baso # (Auto) 0.0 WBC Differential . Differential Comment Auto diff final Sodium 141 Potassium 3.4 L Chloride 104 Carbon Dioxide 24.3 Anion Gap 13 BUN 13 Creatinine 0.78 Estimated GFR 73 L Random Glucose 137 H Calcium 8.9 Microbiology 12/31/17 23:00 Urine - Clean Catch Urine Streptococcus pneumoniae Antigen ( M - Final Presumptive negative for streptococcus pneumoniae antigen, suggesting no current or recent infection. Infection due to Streptococcus pneumoniae cannot be ruled out since the antigen present in the sample may be below the detection limit of the test. 12/31/17 23:00 Urine - Clean Catch Urine Legionella Antigen - Final Presumptive negative for Legionella pneumophila serogroup 1 antigen in urine, suggesting no recent or recurrent infection. Infection due to Legionella cannot be ruled out since other serogroups and species may cause disease, antigen may not be present in urine in early infection, and the level of antigen present in the urine may be below the detection limit of the test. 12/31/17 20:15 Sputum - Expectorated Sputum Gram Stain - Final Assessment and Plan - Assessment (1) Asthma Code(s): J45.909 - Unspecified asthma, uncomplicated Status: Acute (2) Pneumonia Code(s): J18.9 - Pneumonia, unspecified organism Status: Acute (3) Hypoxia Code(s): R09.02 - Hypoxemia Status: Acute (4) Hx pulmonary embolism Code(s): Z86.711 - Personal history of pulmonary embolism Status: Acute (5) Hx of cervical spine surgery Code(s): Z98.890 - Other specified postprocedural states Status: Acute (6) Hx of hysterectomy Code(s): Z90.710 - Acquired absence of both cervix and uterus Status: Acute (7) High cholesterol Code(s): E78.00 - Pure hypercholesterolemia, unspecified Status: Acute (8) Hypertension Code(s): I10 - Essential (primary) hypertension Status: Chronic - Plan 1. Continue antibiotics , Rocephin and Zithromax 2. O2 2 L N/C 3. Duonebs qid. 4. solumedrol 40 mg IV q8H 5. CXR ,BMP in am 6. Symbicort 160/4.5 mcg , 2 puffs bid (2) Pneumonia Qualifiers: Pneumonia type: due to unspecified organism Laterality: left Lung location: upper lobe of lung Qualified Code(s): J18.1 - Lobar pneumonia, unspecified organism (8) Hypertension Qualifiers: Hypertension type: essential hypertension Qualified Code(s): I10 - Essential (primary) hypertension
[2018-01-01] MEDS: Enoxaparin Inj 40 MG/0.4 ML Syringe SQ SCH (18:13)
[2018-01-01] MEDS: Metoprolol Tartrate 25 MG Tablet PO SCH (20:27)
[2018-01-01] MEDS: guaiFENesin 600 MG ER Tablet PO SCH (20:27)
[2018-01-01] MEDS: MethylPREDNISolone Sod Succinate Inj 40 MG/ML Vial IV.PUSH SCH (21:02)
[2018-01-02] MEDS: MethylPREDNISolone Sod Succinate Inj 40 MG/ML Vial IV.PUSH SCH ×3 (05:05→21:07)
[2018-01-02] MEDS: Lisinopril 20 MG Tablet PO SCH (08:39)
[2018-01-02] MEDS: Metoprolol Tartrate 25 MG Tablet PO SCH ×2 (08:39→21:06)
[2018-01-02] MEDS: guaiFENesin 600 MG ER Tablet PO SCH ×2 (08:39→21:06)
[2018-01-02] MEDS: Senna/Docusate Sodium 8.6/50 MG Tablet PO SCH ×2 (08:42→21:06)
--- NOTE | 2018-01-02 10:25 | P.PNONC ---
Subjective Interval history: Afebrile Patient resting in bed; reports having a headache with shortness of breath States her headache has been just since coming into the hospital Having increased back pain and abdominal pain from coughing Denies chills Objective Vital Signs/Intake & Output: Vital Signs 01/01/18 12:00 01/01/18 15:26 01/01/18 15:54 Temperature 98.3 F 98.3 F Pulse Rate 91 H 79 86 Respiratory Rate 18 20 16 Blood Pressure 121/57 L 151/70 H Pulse Oximetry 94 L 94 L 01/01/18 18:42 01/01/18 19:36 01/01/18 20:00 Temperature 98.2 F 98.5 F Pulse Rate 92 H 94 H 113 H Respiratory Rate 16 20 Blood Pressure 158/75 H 143/66 H Pulse Oximetry 92 L 93 L 92 L 01/01/18 23:52 01/02/18 00:00 01/02/18 04:00 Temperature 98.4 F 98.2 F Pulse Rate 95 H 80 79 Respiratory Rate 16 20 20 Blood Pressure 150/71 H 144/67 H Pulse Oximetry 94 L 90 L 01/02/18 04:51 01/02/18 07:50 01/02/18 08:00 Temperature 97.5 F L Pulse Rate 89 81 101 H Respiratory Rate 16 22 16 Blood Pressure 144/70 H Pulse Oximetry 93 L 91 L Intake & Output 01/01/18 01/02/18 01/02/18 18:59 06:59 18:59 Weight 148 lb 5.938 oz 152 lb 5.431 oz Other: Date of Last Bowel Movement 01/01/18 01/01/18 # Bowel Movements 1 Result Diagrams: 01/01/18 08:00 01/01/18 08:00 Culture Results: Microbiology 12/31/17 20:15 Gram Stain - Final Sputum - Expectorated Sputum Sputum Culture - Preliminary Immature growth - reincubate 12/31/17 23:00 Streptococcus pneumoniae Antigen (M - Final Urine - Clean Catch Urine Presumptive negative for streptococcus pneumoniae antigen, suggesting no current or recent infection. Infection due to Streptococcus pneumoniae cannot be ruled out since the antigen present in the sample may be below the detection limit of the test. 12/31/17 23:00 Legionella Antigen - Final Urine - Clean Catch Urine Presumptive negative for Legionella pneumophila serogroup 1 antigen in urine, suggesting no recent or recurrent infection. Infection due to Legionella cannot be ruled out since other serogroups and species may cause disease, antigen may not be present in urine in early infection, and the level of antigen present in the urine may be below the detection limit of the test. Medications: Active Medications Generic Name Dose Route Start Last Admin Trade Name Freq PRN Reason Stop Dose Admin Acetaminophen 650 mg 12/31/17 13:42 12/31/17 17:45 Tylenol PO 650 mg Q4H PRN Administration Temp > 100.4 Albuterol 1 ampul 12/31/17 16:00 01/02/18 07:48 Duoneb Neb (Jonatan) NEB 1 ampul Q4HR NEB JONATAN Administration Cetirizine HCl 10 mg 01/02/18 09:00 01/02/18 08:40 Zyrtec PO 10 mg DAILY JONATAN Administration Enoxaparin Sodium 40 mg 12/31/17 18:00 01/01/18 18:13 Lovenox Inj SQ Not Given Q24H [facility] Estrogens Conjugated 0.3 mg 01/01/18 09:00 01/01/18 09:35 Premarin PO 0.3 mg DAILY JONATAN Administration Guaifenesin 600 mg 01/01/18 21:00 01/02/18 08:39 Mucinex Er PO 600 mg BID JONATAN Administration Azithromycin 250 mg/ Sodium 250 mls @ 250 mls/hr 01/01/18 12:00 01/01/18 12: 20 Chloride IV.SIG 250 mls/hr Q24H JONATAN Administration Lactobacillus Acidophilus 1 gm 12/31/17 18:00 01/02/18 08:40 Lactinex Pkt PO 1 gm TID JONATAN Administration Lisinopril 20 mg 01/01/18 09:00 01/02/18 08:39 Prinivil PO 20 mg DAILY JONATAN Administration Methylprednisolone Sodium Succinate 40 mg 01/01/18 22:00 01/02/18 05:05 Solumedrol Inj IV.PUSH 40 mg Q8HR JONATAN Administration Metoprolol Tartrate 25 mg 01/01/18 21:00 01/02/18 08:39 Lopressor PO 25 mg BID JONATAN Administration Pantoprazole Sodium 40 mg 12/31/17 15:00 01/02/18 08:40 Protonix PO 40 mg DAILY JONATAN Administration Pravastatin Sodium 40 mg 12/31/17 18:00 01/01/18 18:10 Pravachol PO 40 mg QPM JONATAN Administration Senna/Docusate Sodium 1 tab 12/31/17 21:00 01/02/18 08:42 Stephanie-Colace PO Not Given BID JONATAN Sodium Chloride 2 ml 12/31/17 21:00 01/02/18 10:02 Ns Flush IV.FLUSH 2 ml BID JONATAN Administration Objective Remarks: GENERAL: Very pleasant older female resting in bed in no obvious distress SKIN: Warm and dry. HEAD: Normocephalic. EYES: No scleral icterus. No injection or drainage. NECK: Supple, trachea midline. No JVD or lymphadenopathy. CARDIOVASCULAR: Regular rate and rhythm without murmurs. RESPIRATORY: Crackles to left lower lobe posteriorly. Clear anteriorly. On room air GASTROINTESTINAL: Abdomen soft, non-tender, nondistended. EXTREMITIES: No cyanosis, or edema. SCDs placed bilaterally MUSCULOSKELETAL: Adequate muscle tone. NEUROLOGICAL: No obvious focal deficit. Awake, alert, and oriented x3. Assessment/Plan - Plan 72-year-old female with history of pulmonary nodules admitted with pneumonia. CTA of the chest showed lymphadenopathy around the area of the mediastinum not seen previously. No evidence for pulmonary embolism. 1. Continue antibiotics 2. Lymphadenopathy appears to be reactive in nature. 3. The patient is cleared for discharge from oncology standpoint; she will follow-up with Dr. Reynoso in [facility] as scheduled.
--- NOTE | 2018-01-02 11:07 | P.PNIM ---
Subjective Interval history: Mrs. Stewart is a 72 yo F with PMH pulmonary disease (patient of Dr. Castorena and Dr. Reynoso; prior PEs, pneumonia, lung nodule), HTN who presents with cough and shortness of breath. Patient states that she began feeling sick with cough and shortness of breath 2 days prior; she quickly worsened so called Dr. Herminio hollingsworth who sent Azithromycin to pharmacy. Patient took dose of Azithromycin without improvement so decided to seek ED admission since she continued to feel worse today. Patient describes her cough as productive of dark/yellow phlegm. Patient reports wheezing also which she states has improved since being seen in ED. No chest pain or leg swelling. Patient denies headache. No numbness/tingling, or weakness in extremities with exception of chronic carpal tunnel symptoms for which she wears wrist splint. Interval: Patient given Solumedrol 125mg and Azithromycin in ED. Patient also given Duonebs x1 treatment.Patient reports feeling better after arrival in ED 01-01 Follow-up visit pneumonia, failed outpatient treatment. Patient seen and examined today. Reports she still not doing well. States that she feels warm, occasional cough, expectorating sputum small amount. States it has been sent for cultures. Otherwise, denies shortness of breath or dyspnea, denies pain and discomfort. Denies chest pain, palpitations, headaches, dizziness. Denies chills, n/v/d. Denies dysuria. 7 STATES SHE IS BREATHING A LITTLE BETTER ADD MUCINEX INCENTIVE SPIROMETRY NEBS STEROIDS ANTIBIOTICS OXYGEN DW RN AND PT ADD SYMBICORT Physical Exam Vital signs: Vital Signs 01/01/18 12:00 01/01/18 15:26 01/01/18 15:54 Temperature 98.3 F 98.3 F Pulse Rate 91 H 79 86 Respiratory Rate 18 20 16 Blood Pressure 121/57 L 151/70 H Pulse Oximetry 94 L 94 L 01/01/18 18:42 01/01/18 19:36 01/01/18 20:00 Temperature 98.2 F 98.5 F Pulse Rate 92 H 94 H 113 H Respiratory Rate 16 20 Blood Pressure 158/75 H 143/66 H Pulse Oximetry 92 L 93 L 92 L 01/01/18 23:52 01/02/18 00:00 01/02/18 04:00 Temperature 98.4 F 98.2 F Pulse Rate 95 H 80 79 Respiratory Rate 16 20 20 Blood Pressure 150/71 H 144/67 H Pulse Oximetry 94 L 90 L 01/02/18 04:51 01/02/18 07:50 01/02/18 08:00 Temperature 97.5 F L Pulse Rate 89 81 101 H Respiratory Rate 16 22 16 Blood Pressure 144/70 H Pulse Oximetry 93 L 91 L Intake & Output 01/01/18 01/02/18 01/02/18 18:59 06:59 18:59 Weight 67.3 kg 69.1 kg Other: Date of Last Bowel Movement 01/01/18 01/01/18 # Bowel Movements 1 Narrative: GENERAL: This is a well-nourished, well-developed patient, in no apparent distress. SKIN: Warm and dry HEENT: Normocephalic. Pupils equal round and reactive. Nose without bleeding. Airway patent. NECK: Trachea midline. Supple. CARDIOVASCULAR: Regular rate and rhythm without murmurs, gallops, or rubs. RESPIRATORY: Diminished bases. No wheezes, rales, or rhonchi. GASTROINTESTINAL: Abdomen soft, non-tender, nondistended. Bowel Sounds normoactive x4. MUSCULOSKELETAL: Extremities without clubbing, cyanosis, or edema. NEUROLOGICAL: Awake and alert. Oriented to time, place, person. No focal neuro deficit. Moves all extremities. Normal speech. Results - Labs CBC & Chem 7: 01/01/18 08:00 01/01/18 08:00 Microbiology 12/31/17 20:15 Sputum - Expectorated Sputum Gram Stain - Final 12/31/17 20:15 Sputum - Expectorated Sputum Sputum Culture - Final Heavy growth normal respiratory zoe 12/31/17 23:00 Urine - Clean Catch Urine Streptococcus pneumoniae Antigen ( M - Final Presumptive negative for streptococcus pneumoniae antigen, suggesting no current or recent infection. Infection due to Streptococcus pneumoniae cannot be ruled out since the antigen present in the sample may be below the detection limit of the test. 12/31/17 23:00 Urine - Clean Catch Urine Legionella Antigen - Final Presumptive negative for Legionella pneumophila serogroup 1 antigen in urine, suggesting no recent or recurrent infection. Infection due to Legionella cannot be ruled out since other serogroups and species may cause disease, antigen may not be present in urine in early infection, and the level of antigen present in the urine may be below the detection limit of the test. - Imaging Chest X-Ray 12/31/17 09:42 CONCLUSION: Minimal vague infiltrate left upper lobe not present previously. Chest CTA 12/31/17 09:45 CONCLUSION: 1. There is no evidence of PE for technique. 2. Left lower lobe nodule present on the studies going back to 2014 not significantly changed. 3. Parenchymal infiltrates partially consolidated left upper lobe and left lower lobe suspicious for pneumonia. 4. There are lymph nodes within the mediastinum appear pathological not present on the prior examinations and larger as well. Possibility of metastatic disease is difficult to exclude and clinical correlation is suggested. - Procedures none Assessment and Plan - Assessment (1) Pneumonia Code(s): J18.9 - Pneumonia, unspecified organism Status: Acute (2) Hypoxia Code(s): R09.02 - Hypoxemia Status: Acute (3) Hypertension Code(s): I10 - Essential (primary) hypertension Status: Chronic - Plan Mrs. Stewart is a 72 yo F with PMH of pulmonary disease (patient of Dr. Castorena ) who presents with cough and shortness of breath: Community Acquired PNA, failed outpatient treatment -Cough and shortness of breath x2 days; hypoxic to mid 80's on room air in ED. s/p Azithromycin as outpatient. -s/p Azithromycin, Solumedrol, and Duonebs in ED -CXR on admission: Minimal vague infiltrate left upper lobe not present previously -CTA on admission: No PE. LLL nodule not changed since prior imaging. Parenchymal infiltrates partially consolidated L upper lobe and L lower lobe suspicious for pneumonia. Lymph nodes in mediastinum appear pathological; not present on prior exams/larger -Monitor O2 saturations -Continue scheduled Duonebs and PRN -Follow cultures -Legionella and Strep antigen negative -Consult pulmonology, appreciate recommendation. -Continue azithromycin, Augmentin, Solu-Medrol 40mg IV q8 -Symbicort 160/4.5 minutes 2 puffs twice daily. O2 nasal cannula. DUONEBS MUCINEX IS ADD SYMBICORT Lymphadenopathy on CTA -Patient of Dr. Reynoso; had f/u imaging planned for 02/2018 -Hematology consulted for further evaluation recommendation. The lymphadenopathy seen on the CT is believed to be not malignant. Possible reactive lymphadenopathy in the setting of pneumonia. Follow-up with Dr. Reynoso in 3-4 weeks after hospital discharge and additional imaging may be required to reassess the lymphadenopathy.- THEY FEEL THIS IS REACTIVE LYMPHADENOPATHY HTN, uncontrolled -BP 179/69 on admission -Continue home medications Metoprolol 25mg daily, Lisinopril 20mg daily -Increase metoprolol 25 mg twice daily HYPOKALEMIA WILL REPLACE AM LABS DVT PPX -Lovenox, SCDs Code Status: FULL CODE Discussed Condition With: RN AND PT Discharge Planning: PULMONARY IMPROVEMENT (1) Pneumonia Qualifiers: Pneumonia type: due to unspecified organism Laterality: left Lung location: upper lobe of lung Qualified Code(s): J18.1 - Lobar pneumonia, unspecified organism (3) Hypertension Qualifiers: Hypertension type: essential hypertension Qualified Code(s): I10 - Essential (primary) hypertension
[2018-01-02] MEDS: Azithromycin Inj 250 MG in Sodium Chlor 0.9% Inj 250 ML IV.SIG SCH (11:41)
[2018-01-02] MEDS: Budesonide-Formoterol 160/4.5 MCG 6 GM Inhaler INH SCH ×2 (16:17→21:07)
[2018-01-02] MEDS: Enoxaparin Inj 40 MG/0.4 ML Syringe SQ SCH (17:16)
--- NOTE | 2018-01-02 17:48 | P.PN ---
Subjective Interval history: She is SOB and has some cough and wheezing No fever Physical Exam Vital signs: Vital Signs 01/01/18 18:42 01/01/18 19:36 01/01/18 20:00 Temperature 98.2 F 98.5 F Pulse Rate 92 H 94 H 113 H Respiratory Rate 16 20 Blood Pressure 158/75 H 143/66 H Pulse Oximetry 92 L 93 L 92 L 01/01/18 23:52 01/02/18 00:00 01/02/18 04:00 Temperature 98.4 F 98.2 F Pulse Rate 95 H 80 79 Respiratory Rate 16 20 20 Blood Pressure 150/71 H 144/67 H Pulse Oximetry 94 L 90 L 01/02/18 04:51 01/02/18 07:50 01/02/18 08:00 Temperature 97.5 F L Pulse Rate 89 81 101 H Respiratory Rate 16 22 16 Blood Pressure 144/70 H Pulse Oximetry 93 L 91 L 01/02/18 11:49 01/02/18 12:00 01/02/18 15:39 Temperature 98.0 F Pulse Rate 84 91 H Respiratory Rate 18 16 Blood Pressure 152/71 H Pulse Oximetry 93 L 95 01/02/18 15:40 01/02/18 16:00 Temperature 97.8 F Pulse Rate 84 81 Respiratory Rate 18 16 Blood Pressure 137/75 Pulse Oximetry 92 L Intake & Output 01/01/18 01/02/18 01/02/18 18:59 06:59 18:59 Intake Total 250 / 250 Balance 250 / 250 Weight 67.3 kg 69.1 kg Intake: IV 250 / 250 Azithromycin Inj 250 MG In NS 250 / 250 Inj 250 ML @ 250 mls/hr IV.SIG Q24H [facility] Rx#:[id number] Other: Date of Last Bowel Movement 01/01/18 01/01/18 # Bowel Movements 1 Narrative: GENERAL: This is a well-nourished, well-developed patient, in no apparent distress. SKIN: Warm and dry HEENT: Normocephalic. Pupils equal round and reactive. Nose without bleeding. Airway patent. NECK: Trachea midline. Supple. CARDIOVASCULAR: Regular rate and rhythm without murmurs, gallops, or rubs. RESPIRATORY: Diminished bases.Occ wheezes, bilaterally and crackles on left GASTROINTESTINAL: Abdomen soft, non-tender, nondistended. Bowel Sounds normoactive x4. MUSCULOSKELETAL: Extremities without clubbing, cyanosis, or edema. NEUROLOGICAL: Awake and alert. Oriented to time, place, person. No focal neuro deficit. Moves all extremities. Normal speech. Results - Labs CBC & Chem 7: 01/01/18 08:00 01/01/18 08:00 Microbiology 12/31/17 20:15 Sputum - Expectorated Sputum Gram Stain - Final 12/31/17 20:15 Sputum - Expectorated Sputum Sputum Culture - Final Heavy growth normal respiratory zoe - Procedures none Assessment and Plan - Assessment (1) Asthma Code(s): J45.909 - Unspecified asthma, uncomplicated Status: Acute (2) Pneumonia Code(s): J18.9 - Pneumonia, unspecified organism Status: Acute (3) Hypoxia Code(s): R09.02 - Hypoxemia Status: Acute (4) Hx pulmonary embolism Code(s): Z86.711 - Personal history of pulmonary embolism Status: Acute (5) Hx of cervical spine surgery Code(s): Z98.890 - Other specified postprocedural states Status: Acute (6) Hx of hysterectomy Code(s): Z90.710 - Acquired absence of both cervix and uterus Status: Acute (7) High cholesterol Code(s): E78.00 - Pure hypercholesterolemia, unspecified Status: Acute (8) Hypertension Code(s): I10 - Essential (primary) hypertension Status: Chronic - Plan 1. Continue antibiotics , Rocephin and Zithromax 2. O2 2 L N/C 3. Duonebs qid. 4. Cont solumedrol 40 mg IV q8H 5. CBC,BMP in am 6. Symbicort 160/4.5 mcg , 2 puffs bid 7. Will get PFT with Bronchodilator when stable (2) Pneumonia Qualifiers: Pneumonia type: due to unspecified organism Laterality: left Lung location: upper lobe of lung Qualified Code(s): J18.1 - Lobar pneumonia, unspecified organism (8) Hypertension Qualifiers: Hypertension type: essential hypertension Qualified Code(s): I10 - Essential (primary) hypertension
--- NOTE | 2018-01-02 20:10 | XR ---
EXAM DATE: 01/02/2018 8:06 PM EDT AGE/SEX: 72 years / Female INDICATIONS: Evaluate for pneumonia, pneumothorax, or communicable disease. CLINICAL DATA: This is the patient's subsequent encounter. Patient reports that signs and symptoms h ave been present for 1 day and indicates a pain score of 0/10. MEDICAL/SURGICAL HISTORY: Hypertension. None. COMPARISON: [facility], CHEST 1V SINGLE AP, 12/31/2017. [facility], XR CHEST PA AND LAT, 12/04/2015. . FINDINGS: AP and lateral views of the chest demonstrate the lungs to be symmetrically aerated without evidence of mass, infiltrate or effusion. Previously noted vague opacity upper lateral left lung is not disce rnible on today's examination. The cardiomediastinal contours are unremarkable. Osseous structures a re intact. Cervical plate in place. CONCLUSION: The lungs are clear. Electronically signed by: Tom Galaviz MD 01/02/2018 8:09 PM EDT
[2018-01-03] MEDS: MethylPREDNISolone Sod Succinate Inj 40 MG/ML Vial IV.PUSH SCH ×3 (05:34→20:47)
[2018-01-03 07:08] LABS: Hematocrit 42.5 % (35.0-46.0); Hemoglobin 14.1 gm/dL (11.6-15.3); Lymph # (Auto) 1.3 th/mm3 (1.0-4.8); Lymph % (Auto) 9.6 % (9.0-44.0); Mean Corpuscular HGB Conc 33.2 % (32.0-36.0); Mean Corpuscular Hemoglobin 29.1 pg (27.0-34.0); Mean Corpuscular Volume 87.7 fL (80.0-100.0); Mean Platelet Volume 8.4 fL (7.0-11.0); Mono # (Auto) 0.5 th/mm3 (0.0-0.9); Mono % (Auto) 4.1 % (0.0-8.0); Neut # (Auto) 11.5 th/mm3 (1.8-7.7); Neut % (Auto) 86.3 % (16.0-70.0); Platelet Count 367 th/mm3 (150-450); Red Blood Count 4.85 mil/mm3 (4.00-5.30); White Blood Count 13.3 th/mm3 (4.0-11.0)
[2018-01-03 07:32] LABS: Albumin 3.5 g/dL (3.4-5.0); Anion Gap 10 meq/L (5-15); Aspartate Aminotransferase 11 U/L (15-37); Blood Urea Nitrogen 20 mg/dL (7-18); Chloride 105 meq/L (98-107); Glomerular Filtration Rate 71 mL/min (>89); Glucose,Random 104 mg/dL (74-106); Magnesium 2.4 mg/dL (1.5-2.5); Sodium 139 meq/L (136-145)
[2018-01-03 07:33] LABS: Alanine Aminotransferase 21 U/L (10-53); Phosphorus 3.6 mg/dL (2.5-4.9)
[2018-01-03 07:41] LABS: Alkaline Phosphatase 76 U/L (45-117); Free T4 (Free Thyroxine) 1.18 ng/dL (0.76-1.46); Thyroid Stimulating Hormone 0.259 uIU/mL (0.358-3.740); Total Protein 7.2 g/dL (6.4-8.2)
[2018-01-03] MEDS: Lisinopril 20 MG Tablet PO SCH (10:03)
[2018-01-03] MEDS: guaiFENesin 600 MG ER Tablet PO SCH ×2 (10:04→20:44)
[2018-01-03] MEDS: Metoprolol Tartrate 25 MG Tablet PO SCH ×2 (10:04→20:45)
[2018-01-03] MEDS: Senna/Docusate Sodium 8.6/50 MG Tablet PO SCH ×2 (10:04→20:44)
[2018-01-03] MEDS: Budesonide-Formoterol 160/4.5 MCG 6 GM Inhaler INH SCH ×2 (10:06→20:47)
--- NOTE | 2018-01-03 10:39 | P.PNIM ---
Subjective Interval history: Mrs. Stewart is a 72 yo F with PMH pulmonary disease (patient of Dr. Castorena and Dr. Reynoso; prior PEs, pneumonia, lung nodule), HTN who presents with cough and shortness of breath. Patient states that she began feeling sick with cough and shortness of breath 2 days prior; she quickly worsened so called Dr. Herminio hollingsworth who sent Azithromycin to pharmacy. Patient took dose of Azithromycin without improvement so decided to seek ED admission since she continued to feel worse today. Patient describes her cough as productive of dark/yellow phlegm. Patient reports wheezing also which she states has improved since being seen in ED. No chest pain or leg swelling. Patient denies headache. No numbness/tingling, or weakness in extremities with exception of chronic carpal tunnel symptoms for which she wears wrist splint. Interval: Patient given Solumedrol 125mg and Azithromycin in ED. Patient also given Duonebs x1 treatment.Patient reports feeling better after arrival in ED 01-01 Follow-up visit pneumonia, failed outpatient treatment. Patient seen and examined today. Reports she still not doing well. States that she feels warm, occasional cough, expectorating sputum small amount. States it has been sent for cultures. Otherwise, denies shortness of breath or dyspnea, denies pain and discomfort. Denies chest pain, palpitations, headaches, dizziness. Denies chills, n/v/d. Denies dysuria. 7 STATES SHE IS BREATHING A LITTLE BETTER ADD MUCINEX INCENTIVE SPIROMETRY NEBS STEROIDS ANTIBIOTICS OXYGEN DW RN AND PT ADD SYMBICORT 01-03 NOT ABLE TO DO INCENTIVE SPIROMETRY WELL STILL POSITIVE COUGH LESS WHEEZING CONTINUE NEBS, STEROIDS, ANTIBIOTICS,SYMBICORT AND OXYGEN NEEDED NEEDS TO MOVE MORE HOPEFULLY HOME TOMORROW Physical Exam Vital signs: Vital Signs 01/02/18 11:49 01/02/18 12:00 01/02/18 15:39 Temperature 98.0 F Pulse Rate 84 91 H Respiratory Rate 18 16 Blood Pressure 152/71 H Pulse Oximetry 93 L 95 01/02/18 15:40 01/02/18 16:00 01/02/18 20:00 Temperature 97.8 F 98.2 F Pulse Rate 84 81 85 Respiratory Rate 18 16 18 Blood Pressure 137/75 159/74 H Pulse Oximetry 92 L 92 L 01/02/18 20:38 01/02/18 23:52 01/03/18 00:00 Temperature 97.5 F L Pulse Rate 81 81 87 Respiratory Rate 16 16 18 Blood Pressure 151/80 H Pulse Oximetry 90 L 01/03/18 03:04 01/03/18 04:00 01/03/18 07:30 Temperature 97.5 F L Pulse Rate 78 96 H 87 Respiratory Rate 16 18 12 Blood Pressure 150/87 H Pulse Oximetry 93 L 96 01/03/18 08:00 01/03/18 10:05 Temperature 97.2 F L Pulse Rate 78 Respiratory Rate 20 20 Blood Pressure 179/90 H Pulse Oximetry 93 L Intake & Output 01/02/18 01/03/18 01/03/18 18:59 06:59 18:59 Intake Total 380 / 380 Balance 380 / 380 Weight 66.9 kg Intake: Oral 380 / 380 Other: # Voids 5 Date of Last Bowel Movement 01/01/18 01/01/18 # Bowel Movements 1 Narrative: GENERAL: This is a well-nourished, well-developed patient, in no apparent distress. SKIN: Warm and dry HEENT: Normocephalic. Pupils equal round and reactive. Nose without bleeding. Airway patent. NECK: Trachea midline. Supple. CARDIOVASCULAR: Regular rate and rhythm without murmurs, gallops, or rubs. S1- S2 no S3 or S4 no heave or thrill or rub or gallop RESPIRATORY: Diminished bases.Occ wheezes, bilaterally and crackles on left GASTROINTESTINAL: Abdomen soft, non-tender, nondistended. Bowel Sounds normoactive x4. MUSCULOSKELETAL: Extremities without clubbing, cyanosis, or edema. NEUROLOGICAL: Awake and alert. Oriented to time, place, person. No focal neuro deficit. Moves all extremities. Normal speech. Insight and judgment is good Mood and behavior is somewhat appropriate Results - Labs CBC & Chem 7: 01/03/18 06:20 01/03/18 06:20 Laboratory Results - last 24 hr 01/03/18 01/03/18 06:20 06:20 WBC 13.3 H RBC 4.85 Hgb 14.1 Hct 42.5 MCV 87.7 MCH 29.1 MCHC 33.2 RDW 14.0 Plt Count 367 MPV 8.4 Neut % (Auto) 86.3 H Lymph % (Auto) 9.6 [place] % (Auto) 4.1 Eos % (Auto) 0.0 Baso % (Auto) 0.0 Neut # (Auto) 11.5 H Lymph # (Auto) 1.3 [place] # (Auto) 0.5 Eos # (Auto) 0.0 Baso # (Auto) 0.0 WBC Differential . Differential Comment Auto diff final Sodium 139 Potassium 4.0 Chloride 105 Carbon Dioxide 24.0 Anion Gap 10 BUN 20 H Creatinine 0.80 Estimated GFR 71 L Random Glucose 104 Calcium 9.0 Phosphorus 3.6 Magnesium 2.4 Total Bilirubin 0.2 AST 11 L ALT 21 Alkaline Phosphatase 76 Total Protein 7.2 Albumin 3.5 TSH 0.259 L Free T4 1.18 Microbiology 12/31/17 20:15 Sputum - Expectorated Sputum Gram Stain - Final 12/31/17 20:15 Sputum - Expectorated Sputum Sputum Culture - Final Heavy growth normal respiratory zoe - Imaging Impressions Chest X-Ray 01/02/18 00:00 CONCLUSION: The lungs are clear. - Procedures none Assessment and Plan - Assessment (1) Pneumonia Code(s): J18.9 - Pneumonia, unspecified organism Status: Acute (2) Hypoxia Code(s): R09.02 - Hypoxemia Status: Acute (3) Hypertension Code(s): I10 - Essential (primary) hypertension Status: Chronic - Plan Mrs. Stewart is a 72 yo F with PMH of pulmonary disease (patient of Dr. Castorena ) who presents with cough and shortness of breath: Community Acquired PNA, failed outpatient treatment -Cough and shortness of breath x2 days; hypoxic to mid 80's on room air in ED. s/p Azithromycin as outpatient. -s/p Azithromycin, Solumedrol, and Duonebs in ED -CXR on admission: Minimal vague infiltrate left upper lobe not present previously -CTA on admission: No PE. LLL nodule not changed since prior imaging. Parenchymal infiltrates partially consolidated L upper lobe and L lower lobe suspicious for pneumonia. Lymph nodes in mediastinum appear pathological; not present on prior exams/larger -Monitor O2 saturations -Continue scheduled Duonebs and PRN -Follow cultures -Legionella and Strep antigen negative -Consult pulmonology, appreciate recommendation. -Continue azithromycin, Augmentin, Solu-Medrol 40mg IV q8 -Symbicort 160/4.5 minutes 2 puffs twice daily. O2 nasal cannula. DUONEBS MUCINEX IS ADD SYMBICORT Needs to do more incentive spirometry still not pulling much oxygen from Lymphadenopathy on CTA -Patient of Dr. Reynoso; had f/u imaging planned for 02/2018 -Hematology consulted for further evaluation recommendation. The lymphadenopathy seen on the CT is believed to be not malignant. Possible reactive lymphadenopathy in the setting of pneumonia. Follow-up with Dr. Reynoso in 3-4 weeks after hospital discharge and additional imaging may be required to reassess the lymphadenopathy.- THEY FEEL THIS IS REACTIVE LYMPHADENOPATHY HTN, uncontrolled -BP 179/69 on admission -Continue home medications Metoprolol 25mg daily, Lisinopril 20mg daily -Increase metoprolol 25 mg twice daily HYPOKALEMIA WILL REPLACE AM LABS DVT PPX -Lovenox, SCDs Code Status: Full code Discussed Condition With: Discussed with RN and patient and case management Discharge Planning: PULMONARY IMPROVEMENT hopefully in the next 24-48 hours (1) Pneumonia Qualifiers: Pneumonia type: due to unspecified organism Laterality: left Lung location: upper lobe of lung Qualified Code(s): J18.1 - Lobar pneumonia, unspecified organism (3) Hypertension Qualifiers: Hypertension type: essential hypertension Qualified Code(s): I10 - Essential (primary) hypertension
[2018-01-03] MEDS: Azithromycin Inj 250 MG in Sodium Chlor 0.9% Inj 250 ML IV.SIG SCH (13:09)
[2018-01-03 16:28] LABS: Hemoglobin A1c 5.5 % (4.3-6.0)
[2018-01-03] MEDS: Enoxaparin Inj 40 MG/0.4 ML Syringe SQ SCH (17:52)
--- NOTE | 2018-01-03 19:39 | P.PN ---
Subjective Interval history: feels better. Now off O2 and sats are 97. Coughed up Mucoid sputum. No Fever Physical Exam Vital signs: Vital Signs 01/02/18 20:00 01/02/18 20:38 01/02/18 23:52 Temperature 98.2 F Pulse Rate 85 81 81 Respiratory Rate 18 16 16 Blood Pressure 159/74 H Pulse Oximetry 92 L 01/03/18 00:00 01/03/18 03:04 01/03/18 04:00 Temperature 97.5 F L 97.5 F L Pulse Rate 87 78 96 H Respiratory Rate 18 16 18 Blood Pressure 151/80 H 150/87 H Pulse Oximetry 90 L 93 L 01/03/18 07:30 01/03/18 08:00 01/03/18 10:05 Temperature 97.2 F L Pulse Rate 87 78 Respiratory Rate 12 20 20 Blood Pressure 179/90 H Pulse Oximetry 96 93 L 01/03/18 12:00 01/03/18 15:40 01/03/18 16:00 Temperature 97.9 F 97.9 F Pulse Rate 69 84 Respiratory Rate 20 30 H 20 Blood Pressure 153/82 H 171/95 H Pulse Oximetry 92 L 95 01/03/18 16:06 Temperature Pulse Rate 89 Respiratory Rate 12 Blood Pressure Pulse Oximetry Intake & Output 01/03/18 01/03/18 01/04/18 06:59 18:59 06:59 Intake Total 480 / 480 Balance 480 / 480 Weight 66.9 kg Intake: IV 0 / 0 Azithromycin Inj 250 MG In NS 0 / 0 Inj 250 ML @ 250 mls/hr IV.SIG Q24H [facility] Rx#:[id number] Oral 480 / 480 Other: # Voids 4 Date of Last Bowel Movement 01/01/18 01/01/18 # Bowel Movements 1 Narrative: GENERAL: This is a well-nourished, well-developed patient, in no apparent distress. SKIN: Warm and dry HEENT: Normocephalic. Pupils equal round and reactive. Nose without bleeding. Mild eythema NECK: Trachea midline. Supple. CARDIOVASCULAR: Regular rate and rhythm without murmurs, gallops, or rubs. S1- S2 no S3 or S4 no heave or thrill or rub or gallop RESPIRATORY: Diminished bases.Occ wheezes, bilaterally and few crackles on left GASTROINTESTINAL: Abdomen soft, non-tender, nondistended. Bowel Sounds normoactive x4. MUSCULOSKELETAL: Extremities without clubbing, cyanosis, or edema. NEUROLOGICAL: Awake and alert. Oriented to time, place, person. No focal neuro deficit. Moves all extremities. Normal speech. Insight and judgment is good Mood and behavior is appropriate Results - Labs CBC & Chem 7: 01/03/18 06:20 01/03/18 06:20 Laboratory Results - last 24 hr 01/03/18 01/03/18 01/03/18 06:20 06:20 06:20 WBC 13.3 H RBC 4.85 Hgb 14.1 Hct 42.5 MCV 87.7 MCH 29.1 MCHC 33.2 RDW 14.0 Plt Count 367 MPV 8.4 Neut % (Auto) 86.3 H Lymph % (Auto) 9.6 [place] % (Auto) 4.1 Eos % (Auto) 0.0 Baso % (Auto) 0.0 Neut # (Auto) 11.5 H Lymph # (Auto) 1.3 [place] # (Auto) 0.5 Eos # (Auto) 0.0 Baso # (Auto) 0.0 WBC Differential . Differential Comment Auto diff final Sodium 139 Potassium 4.0 Chloride 105 Carbon Dioxide 24.0 Anion Gap 10 BUN 20 H Creatinine 0.80 Estimated GFR 71 L Random Glucose 104 Hemoglobin A1c 5.5 Calcium 9.0 Phosphorus 3.6 Magnesium 2.4 Total Bilirubin 0.2 AST 11 L ALT 21 Alkaline Phosphatase 76 Total Protein 7.2 Albumin 3.5 TSH 0.259 L Free T4 1.18 - Imaging Impressions Chest X-Ray 01/02/18 00:00 CONCLUSION: The lungs are clear. - Procedures none Assessment and Plan - Assessment (1) Asthma Code(s): J45.909 - Unspecified asthma, uncomplicated Status: Acute (2) Pneumonia Code(s): J18.9 - Pneumonia, unspecified organism Status: Acute (3) Hypoxia Code(s): R09.02 - Hypoxemia Status: Acute (4) Hx pulmonary embolism Code(s): Z86.711 - Personal history of pulmonary embolism Status: Acute (5) Hx of cervical spine surgery Code(s): Z98.890 - Other specified postprocedural states Status: Acute (6) Hx of hysterectomy Code(s): Z90.710 - Acquired absence of both cervix and uterus Status: Acute (7) High cholesterol Code(s): E78.00 - Pure hypercholesterolemia, unspecified Status: Acute (8) Hypertension Code(s): I10 - Essential (primary) hypertension Status: Chronic - Plan 1. Continue antibiotics , Rocephin and D/C Zithromax 2. O2 2 L N/C PRN 3. Duonebs qid. 4. Taper solumedrol to 40 mg IV q12H 5. CXR BMP in am 6. Symbicort 160/4.5 mcg , 2 puffs bid 7. Will get PFT with Bronchodilator . (2) Pneumonia Qualifiers: Pneumonia type: due to unspecified organism Laterality: left Lung location: upper lobe of lung Qualified Code(s): J18.1 - Lobar pneumonia, unspecified organism (8) Hypertension Qualifiers: Hypertension type: essential hypertension Qualified Code(s): I10 - Essential (primary) hypertension
[2018-01-04] MEDS: guaiFENesin 600 MG ER Tablet PO SCH (08:03)
[2018-01-04] MEDS: Senna/Docusate Sodium 8.6/50 MG Tablet PO SCH (08:03)
[2018-01-04] MEDS: Lisinopril 20 MG Tablet PO SCH (08:03)
[2018-01-04] MEDS: MethylPREDNISolone Sod Succinate Inj 40 MG/ML Vial IV.PUSH SCH (08:03)
[2018-01-04] MEDS: Metoprolol Tartrate 25 MG Tablet PO SCH (08:03)
[2018-01-04] MEDS: Budesonide-Formoterol 160/4.5 MCG 6 GM Inhaler INH SCH (08:04)
--- NOTE | 2018-01-04 11:15 | P.PNIM ---
Subjective Interval history: Mrs. Stewart is a 72 yo F with PMH pulmonary disease (patient of Dr. Castorena and Dr. Reynoso; prior PEs, pneumonia, lung nodule), HTN who presents with cough and shortness of breath. Patient states that she began feeling sick with cough and shortness of breath 2 days prior; she quickly worsened so called Dr. Herminio hollingsworth who sent Azithromycin to pharmacy. Patient took dose of Azithromycin without improvement so decided to seek ED admission since she continued to feel worse today. Patient describes her cough as productive of dark/yellow phlegm. Patient reports wheezing also which she states has improved since being seen in ED. No chest pain or leg swelling. Patient denies headache. No numbness/tingling, or weakness in extremities with exception of chronic carpal tunnel symptoms for which she wears wrist splint. Interval: Patient given Solumedrol 125mg and Azithromycin in ED. Patient also given Duonebs x1 treatment.Patient reports feeling better after arrival in ED 01-01 Follow-up visit pneumonia, failed outpatient treatment. Patient seen and examined today. Reports she still not doing well. States that she feels warm, occasional cough, expectorating sputum small amount. States it has been sent for cultures. Otherwise, denies shortness of breath or dyspnea, denies pain and discomfort. Denies chest pain, palpitations, headaches, dizziness. Denies chills, n/v/d. Denies dysuria. 7 STATES SHE IS BREATHING A LITTLE BETTER ADD MUCINEX INCENTIVE SPIROMETRY NEBS STEROIDS ANTIBIOTICS OXYGEN DW RN AND PT ADD SYMBICORT 01-03 NOT ABLE TO DO INCENTIVE SPIROMETRY WELL STILL POSITIVE COUGH LESS WHEEZING CONTINUE NEBS, STEROIDS, ANTIBIOTICS,SYMBICORT AND OXYGEN NEEDED NEEDS TO MOVE MORE HOPEFULLY HOME TOMORROW 01-04 OFF OXYGEN WANTS TO GO HOME TODAY STILL COUGHING DW RN AND PT AND CM DC TO HOME WITH C FOLLOW UP PULM ONE WEEK FOLLOW UP PCP 1 WEEK SWITCH TO PO MEDS Physical Exam Vital signs: Vital Signs 01/03/18 12:00 01/03/18 15:40 01/03/18 16:00 Temperature 97.9 F 97.9 F Pulse Rate 69 84 Respiratory Rate 20 30 H 20 Blood Pressure 153/82 H 171/95 H Pulse Oximetry 92 L 95 01/03/18 16:06 01/03/18 19:44 01/03/18 20:00 Temperature 97.6 F Pulse Rate 89 79 84 Respiratory Rate 12 18 18 Blood Pressure 155/72 H Pulse Oximetry 92 L 01/03/18 23:49 01/04/18 00:00 01/04/18 03:11 Temperature 97.8 F Pulse Rate 60 66 66 Respiratory Rate 16 18 16 Blood Pressure 165/89 H Pulse Oximetry 94 L 01/04/18 04:00 01/04/18 08:00 Temperature 97.8 F Pulse Rate 71 67 Respiratory Rate 18 18 Blood Pressure 138/75 169/79 H Pulse Oximetry 94 L 94 L Intake & Output 01/03/18 01/04/18 01/04/18 18:59 06:59 18:59 Intake Total 480 / 480 240 / 240 Balance 480 / 480 240 / 240 Weight 67.3 kg Intake: IV 0 / 0 Azithromycin Inj 250 MG In NS 0 / 0 Inj 250 ML @ 250 mls/hr IV.SIG Q24H [facility] Rx#:[id number] Oral 480 / 480 240 / 240 Other: # Voids 4 2 Date of Last Bowel Movement 01/01/18 # Bowel Movements 1 1 Narrative: GENERAL: This is a well-nourished, well-developed patient, in no apparent distress. SKIN: Warm and dry HEENT: Normocephalic. Pupils equal round and reactive. Nose without bleeding. Mild eythema NECK: Trachea midline. Supple. CARDIOVASCULAR: Regular rate and rhythm without murmurs, gallops, or rubs. S1- S2 no S3 or S4 no heave or thrill or rub or gallop RESPIRATORY: Diminished bases.Occ wheezes, bilaterally and few crackles on left GASTROINTESTINAL: Abdomen soft, non-tender, nondistended. Bowel Sounds normoactive x4. MUSCULOSKELETAL: Extremities without clubbing, cyanosis, or edema. NEUROLOGICAL: Awake and alert. Oriented to time, place, person. No focal neuro deficit. Moves all extremities. Normal speech. Insight and judgment is good Mood and behavior is appropriate Results - Labs CBC & Chem 7: 01/03/18 06:20 01/03/18 06:20 Laboratory Results - last 24 hr 01/03/18 06:20 Hemoglobin A1c 5.5 - Imaging Chest X-Ray 12/31/17 09:42 CONCLUSION: Minimal vague infiltrate left upper lobe not present previously. Chest CTA 12/31/17 09:45 CONCLUSION: 1. There is no evidence of PE for technique. 2. Left lower lobe nodule present on the studies going back to 2015 not significantly changed. 3. Parenchymal infiltrates partially consolidated left upper lobe and left lower lobe suspicious for pneumonia. 4. There are lymph nodes within the mediastinum appear pathological not present on the prior examinations and larger as well. Possibility of metastatic disease is difficult to exclude and clinical correlation is suggested. Chest X-Ray 01/02/18 00:00 CONCLUSION: The lungs are clear. - Procedures none Assessment and Plan - Assessment (1) Pneumonia Code(s): J18.9 - Pneumonia, unspecified organism Status: Acute (2) Hypoxia Code(s): R09.02 - Hypoxemia Status: Acute (3) Hypertension Code(s): I10 - Essential (primary) hypertension Status: Chronic - Plan Mrs. Stewart is a 72 yo F with PMH of pulmonary disease (patient of Dr. Castorena ) who presents with cough and shortness of breath: Community Acquired PNA, failed outpatient treatment -Cough and shortness of breath x2 days; hypoxic to mid 80's on room air in ED. s/p Azithromycin as outpatient. -s/p Azithromycin, Solumedrol, and Duonebs in ED -CXR on admission: Minimal vague infiltrate left upper lobe not present previously -CTA on admission: No PE. LLL nodule not changed since prior imaging. Parenchymal infiltrates partially consolidated L upper lobe and L lower lobe suspicious for pneumonia. Lymph nodes in mediastinum appear pathological; not present on prior exams/larger -Monitor O2 saturations -Continue scheduled Duonebs and PRN -Follow cultures -Legionella and Strep antigen negative -Consult pulmonology, appreciate recommendation. -Continue azithromycin, Augmentin, Solu-Medrol 40mg IV q8 -Symbicort 160/4.5 minutes 2 puffs twice daily. O2 nasal cannula. DUONEBS MUCINEX IS ADD SYMBICORT Needs to do more incentive spirometry still not pulling much oxygen from OFF OXYGEN WANTS TO GO HOME DC TO HOME TODAY Lymphadenopathy on CTA -Patient of Dr. Reynoso; had f/u imaging planned for 02/2018 -Hematology consulted for further evaluation recommendation. The lymphadenopathy seen on the CT is believed to be not malignant. Possible reactive lymphadenopathy in the setting of pneumonia. Follow-up with Dr. Reynoso in 3-4 weeks after hospital discharge and additional imaging may be required to reassess the lymphadenopathy.- THEY FEEL THIS IS REACTIVE LYMPHADENOPATHY HTN, uncontrolled -BP 179/69 on admission -Continue home medications Metoprolol 25mg daily, Lisinopril 20mg daily -Increase metoprolol 25 mg twice daily HYPOKALEMIA WILL REPLACE DC TO HOME TODAY FOLLOW UP WITH PCP AND PULMONARY DVT PPX -Lovenox, SCDs Code Status: FULL CODE Discussed Condition With: RN AND PT AND CM Discharge Planning: DC TO HOME TODAY WANTS [facility] (1) Pneumonia Qualifiers: Pneumonia type: due to unspecified organism Laterality: left Lung location: upper lobe of lung Qualified Code(s): J18.1 - Lobar pneumonia, unspecified organism (3) Hypertension Qualifiers: Hypertension type: essential hypertension Qualified Code(s): I10 - Essential (primary) hypertension
--- NOTE | 2018-01-04 11:16 | P.DCO ---
- Diagnosis (7) Pneumonia (8) Hypertension - Home Health Nursing Order: Medical education, Signs/symptoms of disease process, Medication education-adverse effect, Nursing assessment with vital signs - Home Health Aide Order: To assist in: Bathing and personal care, sales inspector and meal prep - Case Management Consult Yes - Certification I have seen patient Adry Stewart on 01/04/18. My clinical findings support the need for the requested home health care services because: Patient has SOB, Deconditioned with increased weakness I certify that my clinical findings support that this patient is homebound because: Hx COPD - exertion dyspnea/weakness (7) Pneumonia Qualifiers: Pneumonia type: due to unspecified organism Laterality: left Lung location: upper lobe of lung Qualified Code(s): J18.1 - Lobar pneumonia, unspecified organism (8) Hypertension Qualifiers: Hypertension type: essential hypertension Qualified Code(s): I10 - Essential (primary) hypertension
--- NOTE | 2018-01-04 11:30 | P.DS ---
Date of admission: 12/31/17 13:42 Primary care physician: Geovanna Coulter DO Attending physician on discharge: Francisco Gold Anticipated date of discharge: 01/04/18 Brief History from admission: Mrs. Stewart is a 72 yo F with PMH pulmonary disease (patient of Dr. Castorena and Dr. Reynoso; prior PEs, pneumonia, lung nodule), HTN who presents with cough and shortness of breath. Patient states that she began feeling sick with cough and shortness of breath 2 days prior; she quickly worsened so called Dr. Herminio hollingsworth who sent Azithromycin to pharmacy. Patient took dose of Azithromycin without improvement so decided to seek ED admission since she continued to feel worse today. Patient describes her cough as productive of dark/yellow phlegm. Patient reports wheezing also which she states has improved since being seen in ED. No chest pain or leg swelling. Patient denies headache. No numbness/tingling, or weakness in extremities with exception of chronic carpal tunnel symptoms for which she wears wrist splint. Interval: Patient given Solumedrol 125mg and Azithromycin in ED. Patient also given Duonebs x1 treatment.Patient reports feeling better after arrival in ED DS: Diagnosis - Discharge Diagnosis (1) High cholesterol Status: Chronic (2) History of pneumonia Status: Acute (3) Hx of cervical spine surgery Status: Chronic (4) Hx of hysterectomy Status: Chronic (5) Hx pulmonary embolism Status: Chronic (6) Hypoxia Status: Acute (7) Pneumonia Status: Acute (8) Hypertension Status: Chronic DS: Medications - Discharge Medications Prescriptions: azithromycin [Zithromax] 500 mg PO DAILY #5 tab budesonide-formoterol [Symbicort] 2 puff INH BID #1 inh cetirizine [Zyrtec] 10 mg PO DAILY #30 tab guaifenesin [Mucinex] 600 mg PO BID #60 tab ipratropium-albuterol 1 amp NEB Q4HR NEB #120 amp Lactobacillus acidoph-L.bulgar [Floranex] 1 gm PO TID #90 ea lisinopril 20 mg PO DAILY #30 tab metoprolol tartrate 50 mg PO BID #60 tab ondansetron 4 mg SUBLINGUAL Q6H PRN #10 tab PRN Reason: Nausea Or Vomiting pantoprazole [Protonix] 40 mg PO DAILY #30 tab prednisone See Label Instructions .ROUTE .COMPLEX #1 pack sennosides-docusate sodium [Senna Plus] 1 tab PO BID #120 tab simvastatin 20 mg PO QPM #30 tab DS: Summary Hospital Course: Mrs. Stewart is a 72 yo F with H pulmonary disease (patient of Dr. Castorena and Dr. Reynoso; prior PEs, pneumonia, lung nodule), HTN who presents with cough and shortness of breath. Patient states that she began feeling sick with cough and shortness of breath 2 days prior; she quickly worsened so called Dr. Herminio hollingsworth who sent Azithromycin to pharmacy. Patient took dose of Azithromycin without improvement so decided to seek ED admission since she continued to feel worse today. Patient describes her cough as productive of dark/yellow phlegm. Patient reports wheezing also which she states has improved since being seen in ED. No chest pain or leg swelling. Patient denies headache. No numbness/tingling, or weakness in extremities with exception of chronic carpal tunnel symptoms for which she wears wrist splint. Interval: Patient given Solumedrol 125mg and Azithromycin in ED. Patient also given Duonebs x1 treatment.Patient reports feeling better after arrival in ED 01-01 Follow-up visit pneumonia, failed outpatient treatment. Patient seen and examined today. Reports she still not doing well. States that she feels warm, occasional cough, expectorating sputum small amount. States it has been sent for cultures. Otherwise, denies shortness of breath or dyspnea, denies pain and discomfort. Denies chest pain, palpitations, headaches, dizziness. Denies chills, n/v/d. Denies dysuria. 7- STATES SHE IS BREATHING A LITTLE BETTER ADD MUCINEX INCENTIVE SPIROMETRY NEBS STEROIDS ANTIBIOTICS OXYGEN DW RN AND PT ADD SYMBICORT 01-03 NOT ABLE TO DO INCENTIVE SPIROMETRY WELL STILL POSITIVE COUGH LESS WHEEZING CONTINUE NEBS, STEROIDS, ANTIBIOTICS,SYMBICORT AND OXYGEN NEEDED NEEDS TO MOVE MORE HOPEFULLY HOME TOMORROW 01-04 OFF OXYGEN WANTS TO GO HOME TODAY STILL COUGHING DW RN AND PT AND CM DC TO HOME WITH [facility] FOLLOW UP PULM ONE WEEK FOLLOW UP PCP 1 WEEK SWITCH TO PO MEDS - Time Spent with Patient Total time spent providing and/or coordinating discharge services: Greater than 30 minutes - Quality: VTE Deep Vein Thrombosis/Pulmonary Embolism Present on Admission: Yes Exam Vital signs: Vital Signs 01/03/18 12:00 01/03/18 15:40 01/03/18 16:00 Temperature 97.9 F 97.9 F Pulse Rate 69 84 Respiratory Rate 20 30 H 20 Blood Pressure 153/82 H 171/95 H Pulse Oximetry 92 L 95 01/03/18 16:06 01/03/18 19:44 01/03/18 20:00 Temperature 97.6 F Pulse Rate 89 79 84 Respiratory Rate 12 18 18 Blood Pressure 155/72 H Pulse Oximetry 92 L 01/03/18 23:49 01/04/18 00:00 01/04/18 03:11 Temperature 97.8 F Pulse Rate 60 66 66 Respiratory Rate 16 18 16 Blood Pressure 165/89 H Pulse Oximetry 94 L 01/04/18 04:00 01/04/18 08:00 Temperature 97.8 F Pulse Rate 71 67 Respiratory Rate 18 18 Blood Pressure 138/75 169/79 H Pulse Oximetry 94 L 94 L Intake & Output 01/03/18 01/04/18 01/04/18 18:59 06:59 18:59 Intake Total 480 / 480 240 / 240 Balance 480 / 480 240 / 240 Weight 67.3 kg Intake: IV 0 / 0 Azithromycin Inj 250 MG In NS 0 / 0 Inj 250 ML @ 250 mls/hr IV.SIG Q24H [facility] Rx#:[id number] Oral 480 / 480 240 / 240 Other: # Voids 4 2 Date of Last Bowel Movement 01/01/18 # Bowel Movements 1 1 Narrative: GENERAL: This is a well-nourished, well-developed patient, in no apparent distress. SKIN: Warm and dry HEENT: Normocephalic. Pupils equal round and reactive. Nose without bleeding. Mild eythema NECK: Trachea midline. Supple. CARDIOVASCULAR: Regular rate and rhythm without murmurs, gallops, or rubs. S1- S2 no S3 or S4 no heave or thrill or rub or gallop RESPIRATORY: Diminished bases.Occ wheezes, bilaterally and few crackles on left GASTROINTESTINAL: Abdomen soft, non-tender, nondistended. Bowel Sounds normoactive x4. MUSCULOSKELETAL: Extremities without clubbing, cyanosis, or edema. NEUROLOGICAL: Awake and alert. Oriented to time, place, person. No focal neuro deficit. Moves all extremities. Normal speech. Insight and judgment is good Mood and behavior is appropriate Results Procedures completed during hospitalization: none Labs on day of discharge: Labs from last 24 hours 01/03/18 06:20 Hemoglobin A1c 5.5 - Impressions ITS Impressions Chest CTA 12/31/17 09:45 CONCLUSION: 1. There is no evidence of PE for technique. 2. Left lower lobe nodule present on the studies going back to 2014 not significantly changed. 3. Parenchymal infiltrates partially consolidated left upper lobe and left lower lobe suspicious for pneumonia. 4. There are lymph nodes within the mediastinum appear pathological not present on the prior examinations and larger as well. Possibility of metastatic disease is difficult to exclude and clinical correlation is suggested. Chest X-Ray 01/02/18 00:00 CONCLUSION: The lungs are clear. Discharge Plan - Discharge Disposition Patient Disposition: /Home Health Service - Discharge Condition Condition: Good - Discharge Order Discharge Orders: Discharge Order (Routine); Ordered 01/04/18 Ordered By: Francisco Gold - Discharge Details Anticipated Discharge Date: 01/04/18 Discharge Comment: DC TO HOME WITH [facility] - Physicians Team Primary Care Provider: Geovanna Coulter Attending Provider: Francisco Gold Other Providers: Yong Castorena MD ; Maximo Reynoso MD
== END 2018-01-04 14:03 | disposition home health service (06) ==
LOC: NEPD 09:06 → NEDA 09:06 → NEPGCP 14:30 → N04 01-01 16:36 → UNDODISIN 01-01 18:06
PROVIDERS: ADMIT Hospitalist; ATTEND Hospitalist